=== PATIENT | male | born 1965 | race Caucasian/White ===

== ENCOUNTER → 2016-12-21 | Outpatient (CLI) | payer BC ==
[~2016-12-21] MED LIST: BUPRTAB51 PO; GABA600T PO; MELO7.5T5 PO; OXYC1TAB3 PO; PRLSR20 PO
[2016-12-21 17:56] LABS: BASO % 0.5 %; BASO ABS # 0.03 K/uL (0-0.2); COMPLETE YES; EOS % 0.8 %; HEMATOCRIT 44.3 % (42-52); IG% 0.2 %; LYMPH ABS # 1.84 K/uL (1.2-3.4); MEAN CELL VOLUME 91.7 fL (80-100); MEAN CORPUSCULAR HEMOGLOBIN 31.1 pg (25-34); MEAN CORPUSCULAR HGB CONC 33.9 g/dl (32-36); MEAN PLATELET VOLUME 10.6 fL (7.4-10.4); MONO % 8.7 %; NEUT % 60.8 %; PLATELET COUNT 228 K/uL (130-400); RED BLOOD COUNT 4.83 M/uL (4.7-6.1); WHITE BLOOD COUNT 6.35 K/uL (4.8-10.8)
[2016-12-21 18:10] LABS: BLOOD UREA NITROGEN 11 mg/dl (7-18); BUN/CREATININE RATIO 12.2 (10-20); CALCIUM 9.2 mg/dl (8.5-10.1); CARBON DIOXIDE 27 mmol/L (21-32); CHLORIDE 109 mmol/L (98-107); CREATININE 0.93 mg/dl (0.60-1.40); GLUCOSE 90 mg/dl (70-99); POTASSIUM 3.7 mmol/L (3.5-5.1); SODIUM 141 mmol/L (136-145)
[2016-12-21 18:18] LABS: LYME DISEASE AB IGM NEG (NEG)
[2016-12-21 18:21] LABS: LYME DISEASE AB IGG NEG (NEG)
[2016-12-21 18:23] LABS: ALB/GLOB RATIO 1.3 (0.9-2); ALKALINE PHOSPHATASE 64 U/L (45-117); ALT/SGPT 40 U/L (12-78); AST/SGOT 19 U/L (15-37); THYROID STIMULATING HORMONE 0.972 uIu/ml (0.300-4.500)
== END | disposition home or self-care (01) ==
LOC: C.LABPVFM 13:14
PROVIDERS: ATTEND Psychiatry & Neurology Neurology
DX: R41.3 Other amnesia (principal); F41.8 Other specified anxiety disorders

== ENCOUNTER → 2017-02-12 | Outpatient (CLI) | payer BC ==
[~2017-02-12] MED LIST changes: +GADAVIST IV PRN
--- NOTE | 2017-02-12 19:22 | DIAGNOSTIC IMAGING REPORT ---
MRI LUMBAR SPINE COMBINATION CLINICAL HISTORY: M48.061,M54.17, BILATERAL LEG RADICULOPATHY. BILATERAL LEG WEAKNESS TECHNIQUE: Sagittal and axial T1, T2 and STIR images were obtained. Imaging was obtained before and after the administration of 14.9 cc of intravenous Gadavist COMPARISON STUDY: Intraoperative lumbar spine dated 09/17/2014 OBSERVATIONS: There are no areas of marrow replacement suspicious for neoplasm. There multiple Schmorl's nodes with reactive marrow edema most pronounced at the inferior L2 and superior L4 levels. L1-2: There is a broad-based central disc protrusion. There is mild to moderate spinal stenosis. There is mild bilateral foraminal narrowing. L2-3: There is a circumferential disc bulge. There is facet joint arthropathy. There is moderate spinal stenosis. There is mild bilateral foraminal narrowing. There are postlaminectomy changes the L3 level. L3-4: There is a minor circumferential disc bulge. There is mild spinal stenosis. There is no significant foraminal narrowing. L4-5: There is a mild circumferential disc bulge present. There is a left hemilaminectomy defect. There is no significant spinal stenosis. There is mild left-sided foraminal narrowing L5-S1: There is a circumferential disc bulge. There is facet joint arthropathy. There is no significant spinal stenosis. There are postsurgical changes of a left hemilaminectomy. There is mild bilateral foraminal narrowing. The conus medullaris and cauda equina appear normal. Postcontrast images reveal enhancing laminectomy scar at the L3, L5 and S1 levels. There are no pathologically enhancing cord lesions. IMPRESSION: 1. Postsurgical changes and moderate multilevel spondylitic change. There is multilevel foraminal narrowing. There is mild spinal stenosis at the L3-4 level, mild to moderate spinal stenosis the L1-2 level, and moderate spinal stenosis at the L2-3 level. Electronically signed by: Mor Marin M.D. 02/12/2017 7:20 PM Dictated Date/Time: 02/12/2017 7:06 PM
== END | disposition home or self-care (01) ==
LOC: C.MRI 17:39
PROVIDERS: ATTEND Psychiatry & Neurology Neurology
DX: M48.061 Spinal stenosis, lumbar region without neurogenic claudication (principal); M54.17 Radiculopathy, lumbosacral region; Z98.890 Other specified postprocedural states

== ENCOUNTER 2021-03-24 06:55 | Inpatient (IN) ==
[2021-03-24] MEDS ORDERED: ACETAMINOPHEN 500 MG TAB PO STA (07:43)
[2021-03-24] MEDS ORDERED: SODIUM CHLORIDE 0.9% 1000ML 1,000 ML IV SCH (07:45)
[2021-03-24 07:55] LABS: Basophils # (auto) 0.01 K/uL (0-0.2); Basophils % (auto) 0.3 %; Eosinophils # (auto) 0.01 K/uL (0-0.5); Eosinophils % (auto) 0.3 %; Hematocrit (blood only) 44.3 % (42-52); Hemoglobin 15.8 g/dL (14.0-18.0); Immature Granulocytes # (auto) 0.01 K/uL (0.00-0.02); Immature Granulocytes % (auto) 0.3 %; Lymphocytes # (auto) 0.74 K/uL (1.2-3.4); Lymphocytes % (auto) 21.8 %; Mean Corpuscular Hemoglobin 31.7 pg (25-34); Mean Corpuscular Hgb Conc 35.7 g/dL (32-36); Mean Corpuscular Volume 88.8 fL (80-100); Mean Platelet Volume 10.4 fL (7.4-10.4); Monocytes % (auto) 11.8 %; Neutrophils # (auto) 2.23 K/uL (1.4-6.5); Neutrophils % (auto) 65.5 %; Platelet Count 126 K/uL (130-400); RDW Coefficient of Variation 12.8 % (11.5-14.5); RDW Standard Deviation 41.5 fL (36.4-46.3); Red Blood Count 4.99 M/uL (4.7-6.1)
[2021-03-24 08:04] LABS: D Dimer 480 ug/L FEU (0-500); INR 1.2 (0.9-1.1); Prothrombin Time 12.3 Seconds (9.0-12.0)
--- NOTE | 2021-03-24 08:04 | Emergency Department Note ---
History of Present Illness General Chief complaint: Shortness of Breath/Dyspnea Stated complaint: RESP. DISTRESS Time Seen by Provider: 03/24/21 07:31 History of Present Illness This 55-year-old male patient presents to the emergency department today for evaluation of shortness of breath. The patient presents by ambulance. The patient states his got a COVID-19 vaccine. She then developed flulike symptoms of congestion, cough, runny nose, shortness of breath. She improved, but "she gave it to me". The patient reports cough, congestion, shortness of breath. Symptoms have been ongoing for about a week. They worsened at about 230 this morning. He denies documented fever. He reports some generalized leg swelling which has been ongoing for several months. The patient denies any chest pain or weakness. No history of PE or DVT. The patient denies any medical problems including hypertension, heart disease, GERD, diabetes, notes he does not take any other medications. Patient did not receive a COVID-19 vaccine. Home Medications Medication Instructions Recorded Confirmed Type bupropion HCl 150 mg 24 hr tablet, 300 mg PO QAM tab 10/20/19 03/24/21 History extended release (Wellbutrin XL) gabapentin 600 mg tablet 600 mg PO BID #180 tab 10/20/20 03/24/21 Rx medical marijuana See Rx Instructions PO .COMPLEX PRN 10/20/20 03/24/21 History trazodone 100 mg tablet 150 mg PO HS 11/18/20 03/24/21 History celecoxib 200 mg capsule (Celebrex) 200 mg PO QAM 11/24/20 03/24/21 History omeprazole 20 mg tablet,delayed 20 mg PO QPM 11/24/20 03/24/21 History release Allergies Allergy/AdvReac Type Severity Reaction Status Date / Time codeine AdvReac Intermediate Severe Verified 03/09/21 09:23 abdominal cramps Past Med/Surg History Medical History Anxiety Bilateral inguinal hernia Cancer BCC S/P EXCISION Chronic back pain Diverticular disease GERD (gastroesophageal reflux disease) Morbid obesity Osteoarthritis Surgical History H/O bilateral inguinal hernia repair (12/09/20) Laparoscopic cholecystectomy with cholangiogram Dr. Patel 12-09-2020 H/O foot surgery RIGHT HAMMERTOE REPAIRS H/O hand surgery LEFT TRIGGER FINGER RELEASE History of arthroscopy B/L KNEE History of carpal tunnel release RIGHT History of difficult intubation ACDF C4-C5 at [facility]= 05/09/15= could only see epiglottis with MAC 4, Glidescope 4 attempt unable to lift soft tissue enough to visualize cords. MD murphy attempt x2 successful- all attempts atraumatic History of knee replacement Right TKA (08/09/18): SAB at L3-L4/L4-L5 (x4 attempts) > attempted SAB without success > elective glidescope, atraumatic, ETT 8.0 at [facility] History of laminectomy X2 History of local excision of skin lesion BCC History of neck surgery ACDF C4-C5; ROM WNL History of repair of rotator cuff RIGHT Rectal fistula S/P REPAIR S/P excision of lipoma S/P wrist surgery LEFT (FUSION) Family History Grandfather (Maternal) Family history of diabetes mellitus Prostate cancer Myocardial infarction Family/Other No problems noted. Father Prostate cancer Other Colorectal cancer Denies family history of Ovarian cancer Deep vein thrombosis Breast cancer Pulmonary embolism Social History Smoking Status: Light tobacco smoker Tobacco Type: Cigars Years Smoked: 20; Cigarettes Per Day: 1-2 cigars a day; Second Hand Exposure: No; Hx Alcohol Use: Yes Alcohol type: beer Alcohol Intake Frequency: 2-4 x/Month Hx Substance Use: Yes Last Used Substance: Unknown Substance Use Type Other:: medical marijuana Preferred Language: Wallisian Communication Ability: Effective Molded [employer] Cutter Required: No Beliefs That Will Affect Care: None marital status: Current Living Situation: Spouse Current Living Situation Comment: lives with in [facility] current occupational status: retired 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, [employer] How many Children do You have: 2 Feels Safe at Home: Yes caffeine: Yes Dental Care, Regularly: Yes Physical Activity Frequency: 1-2 Times per Week Seatbelt Use: always Sunscreen Use: Yes Assistive Devices: Contacts and Glasses Review of Systems A total of 10 systems reviewed and were otherwise negative Physical Exam Vital Signs Vital Signs - 24 hr 03/24/21 06:55 03/24/21 07:06 03/24/21 07:44 Temperature 37.7 C H Temperature Source Oral Pulse Rate 112 H Pulse Rate [Apical] Respiratory Rate 20 Blood Pressure 134/73 Blood Pressure [Right Arm] Blood Pressure Mean 93 Blood Pressure Mean [Right Arm] Pulse Oximetry 97 94 Oxygen Delivery Method Nasal Cannula Nasal Cannula Room Air Oxygen Flow Rate 4 4 Sepsis Recent Fever Within 48 Hours Yes Sepsis New/Unexplained Change in Mental Status No Sepsis Action Taken by Nursing No Action Required 03/24/21 08:12 03/24/21 08:55 03/24/21 09:00 Temperature Temperature Source Pulse Rate Pulse Rate [Apical] 103 H 86 Respiratory Rate 18 18 Blood Pressure Blood Pressure [Right Arm] 167/99 H 138/88 Blood Pressure Mean Blood Pressure Mean [Right Arm] 121 104 Pulse Oximetry 93 88 L 96 Oxygen Delivery Method Room Air Room Air Nasal Cannula Oxygen Flow Rate 2 Sepsis Recent Fever Within 48 Hours Sepsis New/Unexplained Change in Mental Status Sepsis Action Taken by Nursing VITALS: Vitals are noted on the nurse's note and reviewed by myself. Vital signs stable. GENERAL: This is a 55-year-old white obese male, in no acute distress, nondiaphoretic, well-developed well-nourished. SKIN: The skin was without rashes, erythema, edema, or bruising. There is no tenting of the skin. Capillary refill less than 2 seconds. HEAD: Normocephalic atraumatic. EYES: Conjunctivae without injection, sclerae without icterus. NECK: Supple without nuchal rigidity. No lymphadenopathy. No thyromegaly. Cervical spine is nontender. No JVD. HEART: Regular rate and rhythm without murmurs gallops or rubs. LUNGS: Clear to auscultation bilaterally without wheezes, rales or rhonchi. No retractions or accessory muscle use. ABDOMEN: Positive bowel sounds x 4. Soft, nontender, without masses or organomegaly. Farris sign negative. No guarding or rebound tenderness. MUSCULOSKELETAL: No muscle atrophy, erythema, or edema noted. Full range of motion without joint tenderness in all extremities. No tenderness to palpation. Normal gait. Strength 5/5 throughout. NEURO: Patient was alert and oriented to person place and time. No focal neurological deficits. Course Course The patient was seen and evaluated as above. An order was placed for continuous cardiac monitoring. The monitor shows a sinus tachycardia at a rate of 112 bpm. IV access obtained, labs drawn. Patient hydrated with IV fluids and medicated with acetaminophen. X-ray imaging performed and reviewed by myself and radiologist as noted. Labs reviewed by myself. I discussed the findings with the patient at bedside. Recommended admission. Patient was agreeable. Patient given IV Decadron while in the emergency department. I discussed the case with the quality improvement manager. I discussed the case with the [facility] hospitalist physician, Dr. Carson. He did agree to see and evaluate the patient. Please see hospitalist dictation regarding ongoing management and care of this patient. Administered Medications Sodium Chloride (Sodium Chloride 0.9% 10ml Flush) 30 ml IV Q24H ESTEBAN Stop: 03/28/21 09:46 Last Admin: 03/24/21 13:20 Dose: Not Given Documented by: [id number] Discontinued Medications Acetaminophen (Acetaminophen 500 Mg Tab) 1,000 mg PO NOW STA Stop: 03/24/21 07:44 Last Admin: 03/24/21 08:14 Dose: 1,000 mg Documented by: [id number] Dexamethasone (Dexamethasone Sod Inj 4 Mg/Ml Vial) Confirm Administered Dose 8 mg .ROUTE .STK-MED ONE Stop: 03/24/21 13:08 Last Admin: 03/24/21 13:20 Dose: 6 mg Documented by: [id number] Dexamethasone Sodium Phosphate (DexamethasonePf 10 Mg/Ml Vial) 6 mg IV NOW ONE Stop: 03/24/21 09:20 Last Admin: 03/24/21 13:20 Dose: Not Given Documented by: [id number] Sodium Chloride (Nss 1000ml) 1,000 mls @ 999 mls/hr IV .Q1H1M ESTEBAN Stop: 03/24/21 08:45 Last Infusion: 03/24/21 09:52 Dose: 0 mls/hr Documented by: [id number] Admin: 03/24/21 08:14 Dose: 999 mls/hr Documented by: [id number] Remdesivir 200 mg/ Sodium (Chloride) 250 mls @ 125 mls/hr IV ONE STA; Protocol Stop: 03/24/21 11:38 Last Infusion: 03/24/21 13:10 Dose: 0 mls/hr Documented by: [id number] Admin: 03/24/21 11:07 Dose: 125 mls/hr Documented by: [id number] Ioversol (Optiray 320 125ml) 120 ml IV ONCE ONE Stop: 03/24/21 10:56 Last Admin: 03/24/21 10:57 Dose: 120 ml Documented by: [id number] Medical Decision Making Differential Diagnosis COVID-19, bronchitis, reactive airway disease, pneumonia, pneumothorax, COPD, CHF, infections, cardiac ischemia, pulmonary embolism, musculoskeletal, gastrointestinal, as well as other pathologies. Medical Records Attestation: I reviewed the patient's medical records. Home Medications Current Medication List: was personally reviewed by me Laboratory Data No leukocytosis, anemia, thrombocytopenia. Renal, hepatic function, and electrolytes without significant abnormality. Troponin negative. Procalcitonin less than 0.05. D-dimer 480. INR 1.2. Influenza, RSV testing negative. COVID-19 testing positive. Result diagrams: 03/24/21 07:40 03/24/21 07:40 Lab Results 03/24/21 03/24/21 03/24/21 Range/Units 07:40 07:40 07:40 WBC 3.40 L (4.8-10.8) K/uL RBC 4.99 (4.7-6.1) M/uL Hgb 15.8 (14.0-18.0) g/dL Hct 44.3 (42-52) % MCV 88.8 (80-100) fL MCH 31.7 (25-34) pg MCHC 35.7 (32-36) g/dL RDW Std Deviation 41.5 (36.4-46.3) fL RDW Coeff of Osvaldo 12.8 (11.5-14.5) % Plt Count 126 L (130-400) K/uL MPV 10.4 (7.4-10.4) fL Immature Gran % (Auto) 0.3 % Neut % (Auto) 65.5 % Lymph % (Auto) 21.8 % [place] % (Auto) 11.8 % Eos % (Auto) 0.3 % Baso % (Auto) 0.3 % Neut # (Auto) 2.23 (1.4-6.5) K/uL Lymph # (Auto) 0.74 L (1.2-3.4) K/uL [place] # (Auto) 0.40 (0.11-0.59) K/uL Eos # (Auto) 0.01 (0-0.5) K/uL Baso # (Auto) 0.01 (0-0.2) K/uL Immature Gran # (Auto) 0.01 (0.00-0.02) K/uL PT (9.0-12.0) Seconds INR (0.9-1.1) D-Dimer (0-500) ug/L FEU Sodium 135 L (136-145) mmol/L Potassium 3.9 (3.5-5.1) mmol/L Chloride 102 (98-107) mmol/L Carbon Dioxide 18 L (21-32) mmol/L Anion Gap 15.0 H (3-11) BUN 9 (7-18) mg/dl Creatinine 0.77 (0.6-1.4) mg/dl Est Cr Clr Drug Dosing 163.4 ml/min Est GFR ( Amer) 116.8 ml/min Est GFR (Non-Af Amer) 100.7 ml/min BUN/Creatinine Ratio 12.2 (10-20) Glucose 91 (70-99) mg/dl Calcium 8.9 (8.5-10.1) mg/dl Magnesium 1.9 (1.8-2.4) mg/dl Total Bilirubin 0.9 (0.2-1) mg/dl AST 24 (15-37) U/L ALT 37 (12-78) U/L Alkaline Phosphatase 71 (45-117) U/L Troponin I < 0.015 (0-0.045) ng/ml Total Protein 7.4 (6.4-8.2) gm/dl Albumin 3.9 (3.4-5.0) gm/dl Globulin 3.5 (2.5-4.0) gm/dl Albumin/Globulin Ratio 1.1 (0.9-2) Procalcitonin < 0.05 (0-0.5) ng/ml SARS-CoV-2 (PCR) (Negative) Influenza Type A (PCR) (Neg) Influenza Type B (PCR) (Neg) RSV (RT-PCR) (Neg) 03/24/21 03/24/21 Range/Units 07:40 07:40 WBC (4.8-10.8) K/uL RBC (4.7-6.1) M/uL Hgb (14.0-18.0) g/dL Hct (42-52) % MCV (80-100) fL MCH (25-34) pg MCHC (32-36) g/dL RDW Std Deviation (36.4-46.3) fL RDW Coeff of Osvaldo (11.5-14.5) % Plt Count (130-400) K/uL MPV (7.4-10.4) fL Immature Gran % (Auto) % Neut % (Auto) % Lymph % (Auto) % [place] % (Auto) % Eos % (Auto) % Baso % (Auto) % Neut # (Auto) (1.4-6.5) K/uL Lymph # (Auto) (1.2-3.4) K/uL [place] # (Auto) (0.11-0.59) K/uL Eos # (Auto) (0-0.5) K/uL Baso # (Auto) (0-0.2) K/uL Immature Gran # (Auto) (0.00-0.02) K/uL PT 12.3 H (9.0-12.0) Seconds INR 1.2 H (0.9-1.1) D-Dimer 480 (0-500) ug/L FEU Sodium (136-145) mmol/L Potassium (3.5-5.1) mmol/L Chloride (98-107) mmol/L Carbon Dioxide (21-32) mmol/L Anion Gap (3-11) BUN (7-18) mg/dl Creatinine (0.6-1.4) mg/dl Est Cr Clr Drug Dosing ml/min Est GFR ( Amer) ml/min Est GFR (Non-Af Amer) ml/min BUN/Creatinine Ratio (10-20) Glucose (70-99) mg/dl Calcium (8.5-10.1) mg/dl Magnesium (1.8-2.4) mg/dl Total Bilirubin (0.2-1) mg/dl AST (15-37) U/L ALT (12-78) U/L Alkaline Phosphatase (45-117) U/L Troponin I (0-0.045) ng/ml Total Protein (6.4-8.2) gm/dl Albumin (3.4-5.0) gm/dl Globulin (2.5-4.0) gm/dl Albumin/Globulin Ratio (0.9-2) Procalcitonin (0-0.5) ng/ml SARS-CoV-2 (PCR) POSITIVE A* (Negative) Influenza Type A (PCR) Negative (Neg) Influenza Type B (PCR) Negative (Neg) RSV (RT-PCR) Negative (Neg) Imaging Data Radiologist's Impression: Chest X-Ray 03/24/21 07:32 XR chest 1V portable CLINICAL HISTORY: Dyspnea. Loss of taste and smell COMPARISON STUDY: 07/25/2018 TECHNIQUE: 1 view of the chest FINDINGS: Single frontal view of the chest demonstrates the cardiomediastinal silhouette to be within normal limits. The lungs are clear of alveolar opacities. There is no evidence for pleural effusion. There is no evidence for vascular congestion. There is no acute osseous pathology. IMPRESSION: No acute cardiopulmonary disease. ACT 112: Negative or not required by law. Electronically signed by: Chay Wilson M.D. 03/24/2021 8:21 AM ECG Data Attestation: I personally reviewed and interpreted this ECG as follows: Indication: + SOB/dyspnea Rate (beats per minute): 104 Rhythm: + sinus tachycardia ECG Roe: + Normal ECG ST segments: + T-wave inversions (Inferior); no ST depression or no ST elev ation Comparison ECG Date: from (11/26/2020) Change: the following changes noted (T-wave inversion now presents, ventricular rate has increased by 40bpm) Blood Pressure Blood Pressure Findings: Normal blood pressure MDM Narrative This 55-year-old male patient presents to the emergency department today for evaluation of shortness of breath. The patient was found to be hypoxic with an O2 saturation of 88% on room air here in the ED. He did experience improvement in his symptoms with oxygen therapy. The patient was found to have COVID-19. He is not vaccinated. No significant pneumonia noted on chest x-ray. Given the patient's oxygen requirement, hypoxia, and current illness, I do recommend inpatient therapy. The patient was started on Decadron while here in the emergency department. Please see hospitalist dictation regarding ongoing management and care of this patient. The chart was completed utilizing [employer] voice recognition software. Gr ammatical errors, random word insertions, pronoun errors, and incomplete sentences are an occasional consequence of this system due to software limitations, ambient noise, and hardware issues. Any formal questions or concerns about the content, text, or information contained within the body of this dictation should be directly addressed to the provider for clarification. Impression & Plan Pneumonia due to COVID-19 virus, Acute respiratory failure with hypoxia, Leukopenia Discharge Plan Visit Data Chief Complaint: Shortness of Breath/Dyspnea Stated Complaint: RESP. DISTRESS ED Provider: Paul Cotto ED Midlevel Provider: Chelle Win Discharge Problem: Pneumonia due to COVID-19 virus, Acute respiratory failure with hypoxia, Leukopenia Patient Disposition: Admitted As Inpatient
[2021-03-24 08:14] LABS: Alanine Aminotransferase 37 U/L (12-78); Albumin Level 3.9 gm/dl (3.4-5.0); Aspartate Aminotransferase 24 U/L (15-37); BUN Creatinine Ratio 12.2 (10-20); Blood Urea Nitrogen 9 mg/dl (7-18); Calcium 8.9 mg/dl (8.5-10.1); Carbon Dioxide 18 mmol/L (21-32); Chloride 102 mmol/L (98-107); Creatinine Clr Calc Pharmacy 163.4 ml/min; Est GFR (African American) 116.8 ml/min; Est GFR (Non-African American) 100.7 ml/min; Glucose 91 mg/dl (70-99); Magnesium 1.9 mg/dl (1.8-2.4); Potassium 3.9 mmol/L (3.5-5.1); Sodium 135 mmol/L (136-145)
[2021-03-24 08:18] LABS: Albumin Globulin Ratio 1.1 (0.9-2); Alkaline Phosphatase 71 U/L (45-117); Bilirubin,Total 0.9 mg/dl (0.2-1); Globulin 3.5 gm/dl (2.5-4.0); Total Protein 7.4 gm/dl (6.4-8.2); Troponin I < 0.015 ng/ml (0-0.045)
--- NOTE | 2021-03-24 08:22 | XRay Report ---
XR chest 1V portable CLINICAL HISTORY: Dyspnea. Loss of taste and smell COMPARISON STUDY: 07/25/2018 TECHNIQUE: 1 view of the chest FINDINGS: Single frontal view of the chest demonstrates the cardiomediastinal silhouette to be within normal li mits. The lungs are clear of alveolar opacities. There is no evidence for pleural effusion. There is no evidence for vascular congestion. There is no acute osseous pathology. IMPRESSION: No acute cardiopulmonary disease. ACT 112: Negative or not required by law. Electronically signed by: Chay Wilson M.D. 03/24/2021 8:21 AM
[2021-03-24 08:40] LABS: Influenza A virus by PCR Negative (Neg); Influenza B virus by PCR Negative (Neg); RSV by PCR Negative (Neg)
[2021-03-24 09:01] LABS: SARS CoV2 RNA(COVID-19) InHosp POSITIVE (Negative)
[2021-03-24] MEDS ORDERED: dexAMETHasone**PF** 10 MG/ML VIAL IV ONE (09:19)
[2021-03-24] MEDS ORDERED: REMDESIVIR 200 MG in SODIUM CHLORIDE 0.9% 210 ML IV STA (09:39)
--- NOTE | 2021-03-24 09:40 | History & Physical Report ---
Date of Service March 24, 2021 Assessment & Plan (1) Acute respiratory failure with hypoxia: Plan: 2nd to COVID-19 pneumonia. Given the sudden nature of his dyspnea this am, along with travel by plane to/from [place], PE should be ruled out. Thus, obtain CTA chest - r/o PE. If negative for PE the dyspnea was likely then from worsening pneumonia. (2) Pneumonia due to COVID-19 virus: Plan: Dexamethasone 6mg IV daily for up to 10 days. Remdesivir for up to 5 days, first dose now. Incentive spirometry, flutter valve, mucinex, ventolin prn, and self-proning. Discussed proning in detail. Oxygen to maintain o2 sats >92%. (3) Leukopenia: Plan: 2nd COVID-19 infection. CBC in am. (4) Morbid obesity: Plan: BMI 42 (5) GERD (gastroesophageal reflux disease): Plan: Continue PPI. 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 No h/o asthma or COPD. (7) Thrombocytopenia: Plan: Mild. 2nd to COVID-19 infection. Repeat CBC in am. (8) DVT prophylaxis: Plan: lovenox 40mg BID Plan: will update pt's History of Present Illness Chief Complaint: shortness of breath Primary Care Provider: Domo Cochran, 55yo male with GERD and morbid obesity presents with ~7 days of fatigue, anorexia, loss of taste/smell, dry cough, diarrhea (several days ago), chest tightness, and fever. Patient states that he is unvaccinated against COVID-19. He and his traveled to [place] by plane early last week for [employer] to visit their son in [place]. About 1-2 days after arriving he developed the fatigue, then the day after [place] he lost his taste and smell. Upon arrival back to [facility] early this week he has continued to feel poorly. Overnight the patient developed fever to 102 degrees, and then about 0230am today he was awoken by the acute onset of dyspnea. He had not experienced this during the previous week. The dyspnea this am did not resolve and ultimately he called 911. EMS was summoned to his house and he was transported to [facility]. In the ER O2 sats were 88% in room air. He was given dexamethasone 6mg IV x 1. He reports feeling better with the oxygen. Allergies Allergy/AdvReac Type Severity Reaction Status Date / Time codeine AdvReac Intermediate Severe Verified 03/09/21 09:23 abdominal cramps Home Medications Medication Instructions Recorded Confirmed Type bupropion HCl 150 mg 24 hr tablet, 300 mg PO QAM tab 10/20/19 03/24/21 History extended release (Wellbutrin XL) gabapentin 600 mg tablet 600 mg PO BID #180 tab 10/20/20 03/24/21 Rx medical marijuana See Rx Instructions PO .COMPLEX PRN 10/20/20 03/24/21 History trazodone 100 mg tablet 150 mg PO HS 11/18/20 03/24/21 History celecoxib 200 mg capsule (Celebrex) 200 mg PO QAM 11/24/20 03/24/21 History omeprazole 20 mg tablet,delayed 20 mg PO QPM 11/24/20 03/24/21 History release Past Med/Surg History Medical History Anxiety Bilateral inguinal hernia Cancer BCC S/P EXCISION Chronic back pain Diverticular disease GERD (gastroesophageal reflux disease) Morbid obesity Osteoarthritis Surgical History H/O bilateral inguinal hernia repair (12/09/20) Laparoscopic cholecystectomy with cholangiogram Dr. Patel 12-09-2020 H/O foot surgery RIGHT HAMMERTOE REPAIRS H/O hand surgery LEFT TRIGGER FINGER RELEASE History of arthroscopy B/L KNEE History of carpal tunnel release RIGHT History of difficult intubation ACDF C4-C5 at [facility]= 05/09/15= could only see epiglottis with MAC 4, Glidescope 4 attempt unable to lift soft tissue enough to visualize cords. MD murphy attempt x2 successful- all attempts atraumatic History of knee replacement Right TKA (08/09/18): SAB at L3-L4/L4-L5 (x4 attempts) > attempted SAB without success > elective glidescope, atraumatic, ETT 8.0 at [facility] History of laminectomy X2 History of local excision of skin lesion BCC History of neck surgery ACDF C4-C5; ROM WNL History of repair of rotator cuff RIGHT Rectal fistula S/P REPAIR S/P excision of lipoma S/P wrist surgery LEFT (FUSION) Family History Grandfather (Maternal) Family history of diabetes mellitus Prostate cancer Myocardial infarction Family/Other No problems noted. Father Prostate cancer Other Colorectal cancer Denies family history of Ovarian cancer Deep vein thrombosis Breast cancer Pulmonary embolism Social History Smoking Status: Current every day smoker Tobacco Type: Cigars Years Smoked: 20; Cigarettes Per Day: 1-2 cigars a day; Second Hand Exposure: No; Do You Dip or Chew Tobacco: No; Hx Alcohol Use: Yes Alcohol type: beer Alcohol Intake Frequency: 2-4 x/Month Hx Substance Use: No Preferred Language: Liberian Communication Ability: Effective Scaleman Required: No Beliefs That Will Affect Care: None marital status: Current Living Situation: Spouse Current Living Situation Comment: lives with in [facility] current occupational status: retired 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, [employer] How many Children do You have: 2 Other Information That Helps Us Care for You: No Feels Safe at Home: Yes Safety Concerns: Feels Safe At This Time caffeine: Yes Dental Care, Regularly: Yes Physical Activity Frequency: 1-2 Times per Week Seatbelt Use: always Sunscreen Use: Yes Assistive Devices: Glasses Review of Systems Review of Systems: gen: +fevers (today only),chills (today only), anorexia, fatigue Eyes: no change in vision HENT: no ear pain or sore throat; +loss of taste & smell neck: no pain CV: chest tightness but no chest pain or pleuritic pain Pulm: +cough, congestion, tightness, and then PND/dyspnea this am; mild SAHNI at this time as well; no snoring per GI: diarrhea 2-3 days ago - now resolved; no nausea or emesis : no dysuria Musculo: denies myalgias neuro: no headache skin: rash on abdominal wall - itchy - improving endo: denies diabetes Physical Exam Physical Exam: Gen: morbidly obese; sick but nontoxic, no distress Eyes: PERRL HENT: nose clear; MMM, no lesions Neck: supple, no lymph nodes, no JVD Heart: RRR, s1 s2, no murmur Lungs: b/l basilar rales, no wheeze, no increased work of breathing Abd: soft, NT, ND, BS+, no HSM Skin: chronic stasis changes b/l legs Ext: trace edema, pulses 2+ b/l musculo: scar over right knee, no joint effusions Psych: a/o x 3 Neuro: strength 5/5 x 4 exts Results & Data Results & Data ([facility]) Vital Signs (Past 12 Hours) Vital Signs Temp Pulse Pulse Resp BP BP Pulse Ox 03/24/21 09:00 86 18 138/88 96 03/24/21 08:55 88 L 03/24/21 08:12 103 H 18 167/99 H 93 03/24/21 07:44 94 03/24/21 07:06 37.7 C H 112 H 20 134/73 97 Laboratory Results Laboratory Results - last 24 hr 03/24/21 03/24/21 03/24/21 07:40 07:40 07:40 WBC 3.40 L RBC 4.99 Hgb 15.8 Hct 44.3 MCV 88.8 MCH 31.7 MCHC 35.7 RDW Std Deviation 41.5 RDW Coeff of Osvaldo 12.8 Plt Count 126 L MPV 10.4 Immature Gran % (Auto) 0.3 Neut % (Auto) 65.5 Lymph % (Auto) 21.8 Hood % (Auto) 11.8 Eos % (Auto) 0.3 Baso % (Auto) 0.3 Neut # (Auto) 2.23 Lymph # (Auto) 0.74 L Hood # (Auto) 0.40 Eos # (Auto) 0.01 Baso # (Auto) 0.01 Immature Gran # (Auto) 0.01 PT INR D-Dimer Sodium 135 L Potassium 3.9 Chloride 102 Carbon Dioxide 18 L Anion Gap 15.0 H BUN 9 Creatinine 0.77 Est Cr Clr Drug Dosing 163.4 Est GFR ( Amer) 116.8 Est GFR (Non-Af Amer) 100.7 BUN/Creatinine Ratio 12.2 Glucose 91 Calcium 8.9 Magnesium 1.9 Total Bilirubin 0.9 AST 24 ALT 37 Alkaline Phosphatase 71 Troponin I < 0.015 Total Protein 7.4 Albumin 3.9 Globulin 3.5 Albumin/Globulin Ratio 1.1 Procalcitonin < 0.05 SARS-CoV-2 (PCR) Influenza Type A (PCR) Influenza Type B (PCR) RSV (RT-PCR) 03/24/21 03/24/21 07:40 07:40 WBC RBC Hgb Hct MCV MCH MCHC RDW Std Deviation RDW Coeff of Osvaldo Plt Count MPV Immature Gran % (Auto) Neut % (Auto) Lymph % (Auto) Hood % (Auto) Eos % (Auto) Baso % (Auto) Neut # (Auto) Lymph # (Auto) Hood # (Auto) Eos # (Auto) Baso # (Auto) Immature Gran # (Auto) PT 12.3 H INR 1.2 H D-Dimer 480 Sodium Potassium Chloride Carbon Dioxide Anion Gap BUN Creatinine Est Cr Clr Drug Dosing Est GFR ( Amer) Est GFR (Non-Af Amer) BUN/Creatinine Ratio Glucose Calcium Magnesium Total Bilirubin AST ALT Alkaline Phosphatase Troponin I Total Protein Albumin Globulin Albumin/Globulin Ratio Procalcitonin SARS-CoV-2 (PCR) POSITIVE A* Influenza Type A (PCR) Negative Influenza Type B (PCR) Negative RSV (RT-PCR) Negative Diagnostic Findings CXR - official radiology reading - no infiltrates EKG - my reading - NSR, RSR' pattern inferior leads; ST depression III, AVF Code Status & VTE Plan Code Status full PG Care Time/CCT Total # of Minutes Spent Total Time Spent with Patient: Total time spent is greater than 50% in coordination of care (as documented) at patient's floor/unit and/or counseling patient: Coding Level of Care Code 44843 Initial Inpt Care Lvl 2 Diagnoses Acute respiratory failure with hypoxia J96.01 Pneumonia due to COVID-19 virus U07.1; J12.82 Leukopenia D72.819 Morbid obesity E66.01 GERD (gastroesophageal reflux disease) K21.9 Tobacco abuse disorder Z72.0 DVT prophylaxis Z29.9 Thrombocytopenia D69.6
[2021-03-24] MEDS ORDERED: OPTIRAY 320 125ml IV ONE (10:55)
--- NOTE | 2021-03-24 11:06 | CT Scan Report ---
CT angio chest PE protocol CLINICAL HISTORY: COVID pneumonia, recent travel; shortness of breath for one week with loss of taste and smell over the last 5 days. Evaluate for pulmonary embolus COMPARISON STUDY: Portable chest on 03/24/2021 CT DOSE: 927.35 mGy.cm TECHNIQUE: CT Angio of the chest was performed.followed by image post processing with coronal, and s agittal MIP reformats. Contrast Volume: Optiray 320, 120 ml FINDINGS: Vasculature: There is homogeneous perfusion of the pulmonary vasculature bilaterally. No intraluminal filling defects or evidence for pulmonary embolus is seen. Airway: The airway is clear. No endobronchial lesion is identified. Lungs: Minimal patchy groundglass opacities are present involving both lungs, left greater than right characteristic of a viral type pneumonitis and early Covid 19 pneumonia. The lungs are otherwise dash ar of confluent alveolar opacities, air bronchograms or pulmonary nodules. The lungs are clear of acu te alveolar opacities, air bronchograms or pulmonary nodules. Pleura: There is no evidence for pleural effusion. There is no evidence for pneumothorax. Mediastinum: There is no evidence for pathologic adenopathy. The heart size is within normal limits. The thoracic aorta is within normal limits. There is no evidence for pericardial effusion. Upper abdomen:The adrenal glands are normal bilaterally. There is evidence for fatty infiltration of the liver. Osseous structures: There is no acute osseous pathology. Mild degenerative changes are present. Impression: 1. No CTA evidence for pulmonary embolus. 2. Minimal patchy groundglass opacities are present involving both lungs, left greater than right lee racteristic of a viral type pneumonitis and early Covid 19 pneumonia. 3. Fatty infiltration of the liver. ACT 112: Negative or not required by law. Electronically signed by: Chay Wilson M.D. 03/24/2021 11:04 AM
[2021-03-24] MEDS ORDERED: DEXAMETHASONE SOD INJ 4 MG/ML VIAL ONE (13:07)
[2021-03-24] MEDS: SODIUM CHLORIDE 0.9% 10ML FLUSH IV SCH (13:20)
--- NOTE | 2021-03-24 14:26 | Electrocardiogram Report ---
Test Reason : Blood Pressure : / mmHG Vent. Rate : 104 BPM Atrial Rate : 104 BPM P-R Int : 158 ms QRS Dur : 094 ms QT Int : 348 ms P-R-T Axes : 014 -01 -09 degrees QTc Int : 457 ms Sinus tachycardia Nonspecific ST abnormality Abnormal ECG When compared with ECG of 26-NOV-2020 13:04, Vent. rate has increased BY 40 BPM Questionable change in QRS axis T wave inversion now evident in Inferior leads Nonspecific T wave abnormality now evident in Anterior leads Confirmed by Marcin Davis ([id number]) on 03/24/2021 2:26:43 PM Referred By: Confirmed By:Justin Davis
[2021-03-24] MEDS ORDERED: ALBUTEROL HFA 8 GM INHALER INH PRN (20:41)
[2021-03-24] MEDS ORDERED: ONDANSETRON INJ 2 MG/ML 2 ML VIAL IV PRN (20:41)
[2021-03-24] MEDS ORDERED: ACETAMINOPHEN 325 MG TAB PO PRN (20:41)
[2021-03-24] MEDS ORDERED: NSS + 20MEQ KCL 20 MEQ/1,000 ML BAG IV SCH (20:41)
[2021-03-24] MEDS: ENOXAPARIN INJ 40 MG/0.4 ML SYR SQ SCH (22:23)
[2021-03-24] MEDS: traZODone HCL 50 MG TAB PO SCH (22:23)
[2021-03-24] MEDS: GABAPENTIN 600 MG TAB PO SCH (22:24)
[2021-03-24] MEDS: guaiFENesin 600 MG TABCR PO SCH (22:24)
[2021-03-25] MEDS: GABAPENTIN 600 MG TAB PO SCH ×2 (09:11→20:54)
[2021-03-25] MEDS: guaiFENesin 600 MG TABCR PO SCH ×2 (09:11→20:54)
[2021-03-25] MEDS: PANTOprazole 40 MG TAB PO SCH (09:12)
[2021-03-25] MEDS: buPROPion XL 300 MG TABCR PO SCH (09:12)
[2021-03-25] MEDS: ENOXAPARIN INJ 40 MG/0.4 ML SYR SQ SCH ×2 (09:17→20:54)
[2021-03-25] MEDS: dexAMETHasone 6 MG in SYRINGE 0 ML IV SCH (09:17)
[2021-03-25] MEDS: SODIUM CHLORIDE 0.9% 10ML FLUSH IV SCH ×2 (09:18→13:14)
[2021-03-25 09:45] LABS: Hemoglobin 14.6 g/dL (14.0-18.0); Mean Corpuscular Hemoglobin 31.2 pg (25-34); Mean Corpuscular Hgb Conc 34.8 g/dL (32-36); Mean Corpuscular Volume 89.7 fL (80-100); Mean Platelet Volume 10.5 fL (7.4-10.4); Platelet Count 132 K/uL (130-400); RDW Coefficient of Variation 12.6 % (11.5-14.5); Red Blood Count 4.68 M/uL (4.7-6.1); White Blood Count 3.74 K/uL (4.8-10.8)
[2021-03-25 10:26] LABS: BUN Creatinine Ratio 13.8 (10-20); C Reactive Protein 3.24 mg/dl (0-0.29); Calcium 8.8 mg/dl (8.5-10.1); Creatinine Clr Calc Pharmacy 165.5 ml/min; Est GFR (African American) 117.4 ml/min; Est GFR (Non-African American) 101.3 ml/min; Potassium 3.6 mmol/L (3.5-5.1)
--- NOTE | 2021-03-25 10:34 | Electrocardiogram Report ---
Test Reason : Blood Pressure : / mmHG Vent. Rate : 086 BPM Atrial Rate : 086 BPM P-R Int : 148 ms QRS Dur : 098 ms QT Int : 378 ms P-R-T Axes : 075 023 007 degrees QTc Int : 452 ms Poor data quality, interpretation may be adversely affected Sinus rhythm with occasional Premature ventricular complexes Otherwise normal ECG When compared with ECG of 24-MAR-2021 07:32, Premature ventricular complexes are now Present Confirmed by Marcin Davis ([id number]) on 03/25/2021 10:34:29 AM Referred By: REFERRED SELF Confirmed By:Justin Davis
[2021-03-25] MEDS: REMDESIVIR 100 MG in SODIUM CHLORIDE 0.9% 230 ML IV SCH (11:59)
--- NOTE | 2021-03-25 18:09 | Hospitalist Progress Note ---
Date of Service March 25, 2021 Assessment & Plan (1) Acute respiratory failure with hypoxia: Plan: 2nd to COVID-19 pneumonia. resolved. o2 weaned off. CTA chest yesterday with NO PE; mild COVID pneumonia seen. no evidence of complicating CHF or bacterial superinfection. (2) Pneumonia due to COVID-19 virus: Plan: Dexamethasone 6mg IV daily for up to 10 days. Day #2 today. Remdesivir for up to 5 days - day #2 today. Cont such due to low 02 sats yesterday and ongoing low-normal sats today (and risk of progression of disease). Incentive spirometry, flutter valve, mucinex, ventolin prn, and self-proning. O2 sats in RA during my visit were 91-93%. I asked nursing to walk him today and check ambulating o2 sats. He is eating poorly, slightly confused, and has not been out of bed much - no discharge today. (3) Leukopenia: Plan: 2nd COVID-19 infection. stable. (4) Morbid obesity: Plan: BMI 42 (5) GERD (gastroesophageal reflux disease): Plan: Continue PPI. c/o mild crampy abd pain/stomach upset today -- check lipase am. 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 No h/o asthma or COPD. (7) Thrombocytopenia: Plan: Mild. 2nd to COVID-19 infection. stable level. (8) DVT prophylaxis: Plan: lovenox 40mg BID (9) Acute metabolic encephalopathy: Plan: 2nd to COVID-19 infection supportive care Plan: updated pt's by phone yesterday and today she was informed we were not discharging today questions answered Admission and Anticipated Discharge Date Admission Date: March 24, 2021 Subjective patient still being housed in ER due to lack of neg pressure room upstairs he had fever this am and felt poorly from this drinking fluids but not eating still no taste or smell very little ambulating mild stomach upset coughing but improved no dyspnea at rest; minimal w/ ambulating during the visit he was slightly confused; took him a really long time to say the months of the year backwards o2 was weaned off overnight Review of Systems Review of Systems: gen - fevers, fatigue, anorexia CV - no pleuritic pain pulm - no sputum production GI - no N/V; mild stomach upset/cramps Physical Exam Physical Exam: Gen: morbidly obese; sickly; no acute distress; slight confusion HENT: nose clear; MMM, no lesions Heart: RRR, s1 s2, no murmur Lungs: b/l basilar rales - mild, improved today; no wheeze, no increased work of breathing Abd: soft, NT, ND, BS+, no HSM Skin: chronic stasis changes b/l legs; faint erythematous rash on abdominal wall Ext: trace edema, pulses 2+ b/l Psych: a/o x 3 but slightly confused and "fuzzy" for details Results & Data Results & Data ([facility]) Vital Signs (Past 12 Hours) Vital Signs Temp Pulse Resp BP Pulse Ox Pulse Ox 03/25/21 15:01 37.1 C 61 22 141/85 H 92 03/25/21 14:08 93 03/25/21 12:12 37.1 C 79 25 H 141/77 H 94 03/25/21 08:37 37.3 C 03/25/21 07:50 39.4 C H 101 H 15 145/79 H 92 Laboratory Results Laboratory Results - last 24 hr 03/25/21 03/25/21 09:18 09:18 WBC 3.74 L RBC 4.68 L Hgb 14.6 Hct 42.0 MCV 89.7 MCH 31.2 MCHC 34.8 RDW Std Deviation 41.0 RDW Coeff of Osvaldo 12.6 Plt Count 132 MPV 10.5 H Sodium 134 L Potassium 3.6 Chloride 103 Carbon Dioxide 23 Anion Gap 8.0 BUN 11 Creatinine 0.76 Est Cr Clr Drug Dosing 165.5 Est GFR ( Amer) 117.4 Est GFR (Non-Af Amer) 101.3 BUN/Creatinine Ratio 13.8 Glucose 96 Calcium 8.8 C-Reactive Protein 3.24 H PG Care Time/CCT Total # of Minutes Spent Total Time Spent with Patient: Total time spent is greater than 50% in coordination of care (as documented) at patient's floor/unit and/or counseling patient: Coding Level of Care Code 29405 Subseq Hosp Care Lvl 2 Diagnoses Acute respiratory failure with hypoxia J96.01 Pneumonia due to COVID-19 virus U07.1; J12.82 Leukopenia D72.819 Morbid obesity E66.01 GERD (gastroesophageal reflux disease) K21.9 Tobacco abuse disorder Z72.0 Thrombocytopenia D69.6 DVT prophylaxis Z29.9 Acute metabolic encephalopathy G93.41
[2021-03-25] MEDS: traZODone HCL 50 MG TAB PO SCH (20:54)
[2021-03-26] MEDS: guaiFENesin 600 MG TABCR PO SCH (07:44)
[2021-03-26] MEDS: buPROPion XL 300 MG TABCR PO SCH (07:44)
[2021-03-26] MEDS: ENOXAPARIN INJ 40 MG/0.4 ML SYR SQ SCH (07:44)
[2021-03-26] MEDS: GABAPENTIN 600 MG TAB PO SCH (07:44)
[2021-03-26] MEDS: dexAMETHasone 6 MG in SYRINGE 0 ML IV SCH (07:45)
[2021-03-26] MEDS: PANTOprazole 40 MG TAB PO SCH (07:45)
[2021-03-26 10:12] LABS: Hemoglobin 15.5 g/dL (14.0-18.0); Mean Corpuscular Hemoglobin 31.3 pg (25-34); Mean Corpuscular Hgb Conc 34.4 g/dL (32-36); Mean Corpuscular Volume 90.7 fL (80-100); Mean Platelet Volume 10.3 fL (7.4-10.4); Platelet Count 139 K/uL (130-400); RDW Coefficient of Variation 12.8 % (11.5-14.5); RDW Standard Deviation 42.5 fL (36.4-46.3); Red Blood Count 4.96 M/uL (4.7-6.1); White Blood Count 4.42 K/uL (4.8-10.8)
[2021-03-26 10:39] LABS: BUN Creatinine Ratio 14.7 (10-20); Calcium 9.1 mg/dl (8.5-10.1); Creatinine Clr Calc Pharmacy 143.1 ml/min; Est GFR (African American) 112.1 ml/min; Est GFR (Non-African American) 96.7 ml/min; Potassium 3.7 mmol/L (3.5-5.1)
[2021-03-26] MEDS: SODIUM CHLORIDE 0.9% 10ML FLUSH IV SCH ×2 (10:48→13:29)
[2021-03-26] MEDS: REMDESIVIR 100 MG in SODIUM CHLORIDE 0.9% 230 ML IV SCH (12:15)
--- NOTE | 2021-03-26 12:39 | Discharge Summary ---
Date of Service March 26, 2021 Admission HPI Per Admitting Provider 55yo male with GERD and morbid obesity presents with ~7 days of fatigue, anorexia, loss of taste/smell, dry cough, diarrhea (several days ago), chest tightness, and fever. Patient states that he is unvaccinated against COVID-19. He and his traveled to [place] by plane early last week for [place] to visit their son in [place]. About 1-2 days after arriving he developed the fatigue, then the day after Thanks he lost his taste and smell. Upon arrival back to [facility] early this week he has continued to feel poorly. Overnight the patient developed fever to 102 degrees, and then about 0230am today he was awoken by the acute onset of dyspnea. He had not experienced this during the previous week. The dyspnea this am did not resolve and ultimately he called 911. EMS was summoned to his house and he was transported to [facility]. In the ER O2 sats were 88% in room air. He was given dexamethasone 6mg IV x 1. He reports feeling better with the oxygen. Admission Exam Per Admitting Provider Gen: morbidly obese; sick but nontoxic, no distress Eyes: PERRL HENT: nose clear; MMM, no lesions Neck: supple, no lymph nodes, no JVD Heart: RRR, s1 s2, no murmur Lungs: b/l basilar rales, no wheeze, no increased work of breathing Abd: soft, NT, ND, BS+, no HSM Skin: chronic stasis changes b/l legs Ext: trace edema, pulses 2+ b/l musculo: scar over right knee, no joint effusions Psych: a/o x 3 Neuro: strength 5/5 x 4 exts Principal Diagnosis COVID-19 pneumonia Discharge Exam General: A&Ox3. NAD. Cooperative. HEENT: Atraumatic, normocephalic. Pulm: Trace bibasilar crackles, moderate air movement,-wheezes, -rales, - rhonchi. Symmetrical chest rise. No increase work of breathing. No respiratory distress. Cardiac: RRR, -mrg. Radial pulses intact and symmetrical. Abdominal: Nontender, nondistended, soft. BS present. Extremities: Warm, dry. Moving all extremities equally. Discharge Data Allergies Allergy/AdvReac Type Severity Reaction Status Date / Time codeine AdvReac Intermediate Severe Verified 03/09/21 09:23 abdominal cramps Consultations 03/24/21 09:28 ED Decision to Admit Stat Ordered Studies 03/24/21 10:31 CT angio chest PE protocol Stat Hospital Course (1) Acute respiratory failure with hypoxia: Moshe Mandel) was admitted for acute hypoxic respiratory failure 2/[address] chest did not show any evidence of PE, mild Covid pneumonia was seen. He had an oxygen requirement on nasal cannula, which was quickly weaned and patient was tolerating room air at rest and with ambulation maintaining sats greater than 94% following wean. To do as outpatient: 1. Complete 8 additional days of dexamethasone 6 mg p.o. 2. Routine follow-up with PCP 3. Consider repeat CBC to ensure normalization of leukopenia, thrombocytopenia during admission improved Acute hypoxic respiratory failure 2nd to COVID-19 pneumonia. resolved. o2 weaned off. CTA chest with NO PE; mild COVID pneumonia seen. no evidence of complicating CHF or bacterial superinfection Patient satting on room air at rest and with ambulation greater than 94% for more than 24 hours prior to time of discharge Day of discharge discussed various options including continuing to observe, completion of remdesivir protocol, return home with return precautions. Patient strongly preferred return precautions and to be discharged 03/26, felt comfortable with this especially given satting normally on room air. (2) Pneumonia due to COVID-19 virus: Dexamethasone 6mg daily for 10 days. Converted to p.o. at discharge. Completed 3 days of remdesivir, additional doses deferred as patient greater than 10 days from onset of symptoms with minimal benefit, and with normal oxygen saturation at rest and with ambulation at time of discharge. Incentive spirometry, flutter valve, mucinex, ventolin prn, and self-proning use during admission Patient ambulated before discharge, maintained O2 sat greater than 94% Normal mentation at time of discharge (3) Leukopenia: 2nd COVID-19 infection. stable. (4) Morbid obesity: BMI 42 (5) GERD (gastroesophageal reflux disease): Continue PPI. (6) Tobacco abuse disorder: Bobbin Drier to quit. No h/o asthma or COPD. (7) Thrombocytopenia: Mild. 2nd to COVID-19 infection. stable level, improved (8) DVT prophylaxis: lovenox 40mg BID during admission, no signs of DVT during admission (9) Acute metabolic encephalopathy: 2nd to COVID-19 infection supportive care Improved and normalized day of discharge Total Time Total Time Spent Total Time Spent (In Minutes): Total time spent day of discharge including direct patient care, documentation, and review of labs and images approximately 35 minutes. Discharge Plan Discharge Items Patient Disposition: Home - Self-Care Reason For Visit: COVID-19 PNEUMONA Discharge Diagnosis: COVID-19 pneumonia Activity: Per Instructions section Non-emergency contact: Primary Care Provider Call non-emergency contact if: you have any medication questions, your symptoms worsen, your pain is concerning for you and you have a fever Follow-up/Referrals: Domo Cochran DO [Primary Care Provider] - Diet: Regular Addtl Attending Provider Instructions: You were seen in the hospital for COVID-19 pneumonia. You clinically improved, and were treated with 3 days of remdesivir and steroid treatment.You have been prescribed additional steroids at time of discharge as noted below. You clinically improved and did not require oxygen for over 24 hours including with ambulation prior to discharge. Some patients experience a worsening of their Covid illness after initial improvement, if you experience any worsening symptoms including worsening shortness of breath, difficulty breathing, or other new/concerning symptoms please call your primary care physician or contact 911 for reevaluation in the emergency department. You have been prescribed additional doses of a steroid medication called dexamethasone. Please continue to take dexamethasone 6 mg by mouth once daily for 8 additional days. You were noted to have low white blood cell levels and low platelet levels during admission. Both of these can be caused by Covid infection. Your platelet levels had improved to normal ranges, your white blood cell count remains slightly low. Please discuss a recheck blood count (CBC) with your PCP at your follow-up appointment. A followup appointment is being scheduled for you with your PCP. You should be seen seen within 1 to 2 weeks, your provider may prefer virtual visit. You should receive a call to confirm this appointment. If you do not receive a call within 48 hours to confirm this appointment, or need to change this appointment, please call the provider's office at [phone]. If you develop any new or worsening symptoms including fever, chills, sweats, chest pain, chest pressure, difficulty breathing, uncontrolled nausea/vomiting, rash, wheezing, passing out or nearly passing out, bleeding, black/bloody bowel movements, or other new or concerning symptoms please call your primary care physician at [phone], or call 911 for re-evaluation in the emergency department if you are very concerned. Pending Studies at Discharge: No Stand-Alone Forms: [facility], Sm[facility] Cess[facility] Medications and DC Order Prescriptions: New dexamethasone 6 mg tablet 6 mg PO DAILY Qty: 8 RF: 0 Continued gabapentin 600 mg tablet 600 mg PO BID Qty: 180 RF: 3 medical marijuana See Rx Instructions PO .COMPLEX PRN (Reason: Pain) RF: 0 bupropion HCl [Wellbutrin XL] 150 mg tablet extended release 24 hr 300 mg PO QAM RF: 0 trazodone 100 mg Tablet 150 mg PO HS RF: 0 celecoxib [Celebrex] 200 mg capsule 200 mg PO QAM RF: 0 omeprazole 20 mg tablet,delayed release (DR/EC) 20 mg PO QPM RF: 0 Discharge Orders: Discharge Order (Routine); Ordered 03/26/21 Ordered By: yTrese Lawson Admission Data Admit Date/Time: 03/24/21 10:31 Attending Provider: Tyrese Lawson Admit Provider: Tom Carson Primary Care Provider: Domo Cochran Other Providers: Tom Carson Other Interventions: Discharge Summary Assessment (RN) Last Done: 03/26/21 12:29 Coding Level of Care Code D/C DAY MANAGEMENT >30 MINS Diagnoses Acute respiratory failure with hypoxia J96.01 Pneumonia due to COVID-19 virus U07.1; J12.82 Leukopenia D72.819 Morbid obesity E66.01 GERD (gastroesophageal reflux disease) K21.9 Tobacco abuse disorder Z72.0 Thrombocytopenia D69.6 DVT prophylaxis Z29.9 Acute metabolic encephalopathy G93.41
[2021-03-27] MEDS ORDERED: dexAMETHasone 1 MG TAB PO SCH ×2 (09:00)
== END 2021-03-26 19:13 | disposition home or self-care (01) | DRG 177 ==
LOC: ED 06:55 → EDINP 10:31 → SUATTDRO 10:31 → EDINP 13:45 → 2W 03-25 22:53

== ENCOUNTER 2024-05-15 05:11 | Observation (INO) ==
--- NOTE | 2024-04-21 11:48 | PAT Medication Instructions ---
Medication Instructions Date of Service April 21, 2024 Home Medications Medication Instructions Recorded gabapentin 600 mg tablet 600 mg PO BID #180 tabs 08/16/23 celecoxib 200 mg capsule (Celebrex) 200 mg PO QAM #90 caps 10/08/23 cyclobenzaprine 10 mg tablet 10 mg PO TID PRN muscle spasm #30 01/04/24 tabs Wheeled Walker #1 ea 03/14/24 Wheeled Walker #1 ea 03/14/24 oxycodone 10 mg tablet 10 mg PO TID PRN pain #90 tabs 04/14/24 medical marijuana See Rx Instructions PO .COMPLEX PRN Pain trazodone 100 mg tablet 150 mg PO HS methylphenidate HCl 18 mg tablet,extended release 24 hr (Concerta) 36 mg PO QAM gabapentin 600 mg tablet 600 mg PO BID celecoxib 200 mg capsule (Celebrex) 200 mg PO QAM cyclobenzaprine 10 mg tablet 10 mg PO TID PRN muscle spasm oxycodone 10 mg tablet 10 mg PO TID PRN pain acetaminophen 500 mg tablet 500 mg PO QID PRN Pain ascorbic acid 500 mg-bioflavonoids 500 mg tablet 1 tab PO DAILY multivitamin 1 tab PO DAILY omeprazole 20 mg capsule,delayed release 20 mg PO QPM turmeric 400 mg capsule 800 mg PO QAM ASK your surgeon for instructions celecoxib 200 mg capsule (Celebrex) 200 mg PO QAM STOP taking 2 weeks before surgery (or as soon as possible if surgery is within 2 weeks) turmeric 400 mg capsule 800 mg PO QAM DO NOT take the morning of surgery medical marijuana See Rx Instructions PO .COMPLEX PRN Pain methylphenidate HCl 18 mg tablet,extended release 24 hr (Concerta) 36 mg PO QAM ascorbic acid 500 mg-bioflavonoids 500 mg tablet 1 tab PO DAILY multivitamin 1 tab PO DAILY Take morning of surgery With a small sip of water, OTHERWISE NOTHING TO EAT OR DRINK AFTER MIDNIGHT: gabapentin 600 mg tablet 600 mg PO BID cyclobenzaprine 10 mg tablet 10 mg PO TID PRN muscle spasm (if needed) oxycodone 10 mg tablet 10 mg PO TID PRN pain (if needed) acetaminophen 500 mg tablet 500 mg PO QID PRN Pain (if needed) Take evening before surgery medical marijuana See Rx Instructions PO .COMPLEX PRN Pain (if needed) trazodone 100 mg tablet 150 mg PO HS gabapentin 600 mg tablet 600 mg PO BID cyclobenzaprine 10 mg tablet 10 mg PO TID PRN muscle spasm (if needed) oxycodone 10 mg tablet 10 mg PO TID PRN pain (if needed) acetaminophen 500 mg tablet 500 mg PO QID PRN Pain (if needed) omeprazole 20 mg capsule,delayed release 20 mg PO QPM Other Notes If you have any questions please call us at [phone] or [phone] or [phone] or [phone]
--- NOTE | 2024-04-28 12:52 | Anesthesiology Consultation ---
Date of Service April 28, 2024 Assessment & Plan (1) Encounter for pre-operative examination: Plan - difficult intubation: ACDF C4-C5 at [facility]= 05/09/15= could only see epiglottis with MAC 4, Glidescope 4 attempt unable to lift soft tissue enough to visualize cords. MD murphy attempt x2 successful- all attempts atraumatic. - Patient states he is supposed to be scheduled as overnight stay, not outpatient joint. Surgeon's office made aware, OR corrected booking to overnight. Chart Review Chart Review: Acceptable Risk for Surgery and Patient seen in Pre Admission Testing Teaching & Discussion Pre-Anesthesia Teaching/Discussion Notes: Instructed NPO after midnight before surgery, except medications with 15 cc of water. Medication instructions provided according to the PAT guidelines. History Surgery Operation Date: 05/15/24 10:40 Proposed Procedures p Left Total Hip Arthroplasty - Julio Puente MD Height/Weight Height: 6 ft 2 in Weight: 152.1 kg Allergies Allergy/AdvReac Type Severity Reaction Status Date / Time codeine AdvReac Intermediate Severe Verified 04/15/24 08:03 abdominal cramps Medications Home Medications Medication Instructions Recorded Confirmed Last Taken medical marijuana See Rx Instructions PO .COMPLEX 10/20/20 04/15/24 01/21/23 PRN Pain trazodone 100 mg tablet 150 mg PO HS 11/18/20 04/15/24 01/23/23 methylphenidate HCl 18 mg 36 mg PO QAM 03/21/23 04/15/24 Unknown tablet,extended release 24 hr (Concerta) gabapentin 600 mg tablet 600 mg PO BID #180 tabs 08/16/23 04/15/24 Unknown celecoxib 200 mg capsule (Celebrex) 200 mg PO QAM #90 caps 10/08/23 04/15/24 Unknown cyclobenzaprine 10 mg tablet 10 mg PO TID PRN muscle spasm #30 01/04/24 04/15/24 Unknown tabs Wheeled Walker #1 ea 03/14/24 Unknown Wheeled Walker #1 ea 03/14/24 Unknown oxycodone 10 mg tablet 10 mg PO TID PRN pain #90 tabs 04/14/24 04/15/24 Unknown acetaminophen 500 mg tablet 500 mg PO QID PRN Pain 04/15/24 04/15/24 Unknown ascorbic acid 500 mg-bioflavonoids 1 tab PO DAILY 04/15/24 04/15/24 Unknown 500 mg tablet multivitamin 1 tab PO DAILY 04/15/24 04/15/24 Unknown omeprazole 20 mg capsule,delayed 20 mg PO QPM 04/15/24 04/15/24 Unknown release turmeric 400 mg capsule 800 mg PO QAM 04/15/24 04/15/24 Unknown Past Medical History Medical History ADD (attention deficit disorder) Cervical radiculopathy at C6 Depression Diverticular disease hx, diverticulitis-last flare several years ago GERD (gastroesophageal reflux disease) controlled, stable per pt History of anxiety History of COVID-19 (2020) 2020, pneumonia, respiratory failure>no current symptoms History of depression Hx of basal cell carcinoma s/p removal right arm Hx of difficult intubation (2015) per hx: ACDF C4-C5 at [facility]= 05/09/15= could only see epiglottis with MAC 4, Glidescope 4 attempt unable to lift soft tissue enough to visualize cords. MD murphy attempt x2 successful- all attempts atraumatic Hx of tuberculosis (1981) tested positive, no symptoms, treated x 1 year, no issues Medical cannabis use Osteoarthritis of left hip Pseudogout Snoring states sleep study was negative, but states he does not tolerate laying on his back Thrombocytopenia Trigger finger mostly left index finger Patient denies h/o stroke, seizures, heart attack, heart failure, DM, HTN, blood clots/DVTs or blood transfusions. Exercise / Class Metabolic Activity II 4-5 Yardwork/Stairs/Walk up hill (denies chest discomfort or shortness of breath with one flight of stairs) Past Family History Family History Grandfather (Maternal) Family history of diabetes mellitus Prostate cancer Myocardial infarction Family/Other No problems noted. Father Prostate cancer Other Colorectal cancer Denies family history of Ovarian cancer Deep vein thrombosis Breast cancer Pulmonary embolism Past Surgical History Surgical History H/O bilateral inguinal hernia repair (12/09/20) H/O foot surgery right hammertoe H/O hand surgery left trigger finger History of arthroscopy b/l knee x2 right x1 left History of basal cell carcinoma (BCC) excision History of carpal tunnel release right History of knee replacement (07/2018) Right TKA (08/09/18): SAB at L3-L4/L4-L5 (x4 attempts) > attempted SAB without success > elective glidescope, atraumatic, ETT 8.0 at [facility] History of laminectomy X2 L4-L5- 2014 L2-L3-2016 History of mandibular surgery (1995) right jaw- fatty growth removed History of rectal surgery (1991) rectal fistula History of repair of rotator cuff (2011) right Hx of colonoscopy with polypectomy Hx of fusion of cervical spine (2015) ACDF C4-C5; ROM WNL Hx of repair of left rotator cuff (09/2022) Hx of thumb surgery rt thumb tendon repair S/P wrist surgery left fusion Past Anesthesia History Difficult Airway and No Family Hx of Anesthesia Complications History of PONV No Hx of PONV and No Hx of Motion Sickness Social History Smoking Status: Current every day smoker tobacco type: cigars Smoking cigarettes per day: 1 cigar per day (Advised) Do You Dip or Chew Tobacco: No Hx Alcohol Use: Yes Alcohol type: beer and hard liquor alcohol intake frequency: a few times a week Hx Substance Use: Yes substance use type: marijuana Substance Use Type Other:: medical marijuana Last Used Substance: Unknown Last Used Substance Other:: medical marijuana (advised) Review of Systems Patient denies chest pain, shortness of breath, dyspnea on exertion, fever, chills, cough, wheezing, or palpitations. Physical Exam Vital Signs Vitals BP 155/83 P 66 TEMP 98.7 SP02 96% on RA RESP 19 Physical Patient resting comfortably in chair in no acute distress, alert and oriented, responding appropriately throughout visit Mild limitation of cervical extension range of motion without pain TMD 3.5 finger breadths Mallampati Score 2 Dentition: intact, denies chipped or loose teeth, caps/crowns, implants or bridges Lungs: normal respiratory effort. Good air movement, clear throughout to auscultation, no adventitious breath sounds Cardiac: regular rate and rhythm, no murmurs noted Carotid arteries: negative bruit bilat Lab Results Anesthesia Preop Results Results Anesthesia Widget: WBC 7.23 K/ul (4.8-10.8) 04/28/24 Hgb 14.1 g/dl (14.0-18.0) 04/28/24 Hct 40.8 % (42.0-52.0) L 04/28/24 Plt 279 K/uL (130-400) 04/28/24 Na 141 mmol/L (136-145) 04/28/24 K 3.9 mmol/L (3.5-5.1) 04/28/24 Cl 108 mmol/L (98-107) H 04/28/24 CO2 26 mmol/L (21-32) 04/28/24 BUN 16 mg/dl (6-23) 04/28/24 Creat 0.78 mg/dl (0.6-1.4) 04/28/24 Glucose Level 120 mg/dl (70-99(Fasting)) H 04/28/24 PT 12.6 Seconds (9.0-12.0) H 04/28/24 PTT 27 Seconds (21-31) 04/28/24 INR 1.2 (0.9-1.1) H 04/28/24 Blood Type A Positive 04/28/24 Antibody Screen NEGATIVE 04/28/24 Testing Electrocardiogram Date: 04/28/24 NSR, rate 67 bpm Incomplete RBBB Chest X-Ray Date: 04/28/24 No acute findings.
--- NOTE | 2024-05-10 09:51 | History & Physical Report ---
Date of Service May 10, 2024 Assessment & Plan (1) Osteoarthritis of left hip: 58-year-old gentleman with progressive hip pain consistent with progressing and advanced hip arthritis. He is failed conservative measures. He is got significant back issues as well which probably contributes some to this issue. Plan: We discussed treatment option with the patient. Certainly he is got hip arthritis and a lot of his pain seems to be coming from his hip but unsure some this was coming from his back. After extensive discussion he like to proceed now with left hip replacement. I do think this will help him significantly but does not resolve all of his problems prickly with those related to his back. He understands and informed consent was obtained. Will plan to keep in the hospital overnight and likely discharge postoperative day 1. Will use aspirin for DVT prophylaxis. (2) Degenerative disc disease, lumbar: (3) ADD (attention deficit disorder): (4) GERD (gastroesophageal reflux disease): (5) Morbid obesity: (6) Depression: History of Present Illness Chief Complaint: . Left hip and groin pain. Primary Care Provider: SHO Etienne . The patient is a 58-year-old gentleman well-known to me from a previous right knee replacement in July 2018. Over the past year to year and a half he has developed increased pain discomfort in his left hip groin and thigh area. She got significantly worse over the past 8 months. He is failed conservative measures. Is been through pain clinic had injection to provide only temporary relief. He was actually scheduled for surgery with Dr. Espinoza at [facility] but was planning on doing outpatient surgery on him. He was not too keen on that and wants to stay in the hospital overnight. He now presents for surgical treatment. He like to have his hip fixed. He wants to stay in the hospital overnight. Allergies Allergy/AdvReac Type Severity Reaction Status Date / Time codeine AdvReac Intermediate Severe Verified 04/15/24 08:03 abdominal cramps Home Medications Medication Instructions Recorded Confirmed Type medical marijuana See Rx Instructions PO .COMPLEX 10/20/20 04/15/24 History PRN Pain trazodone 100 mg tablet 150 mg PO HS 11/18/20 04/15/24 History methylphenidate HCl 18 mg 36 mg PO QAM 03/21/23 04/15/24 History tablet,extended release 24 hr (Concerta) gabapentin 600 mg tablet 600 mg PO BID #180 tabs 08/16/23 04/15/24 Rx celecoxib 200 mg capsule (Celebrex) 200 mg PO QAM #90 caps 10/08/23 04/15/24 Rx cyclobenzaprine 10 mg tablet 10 mg PO TID PRN muscle spasm #30 01/04/24 04/15/24 Rx tabs Wheeled Walker #1 ea 03/14/24 Rx Wheeled Walker #1 ea 03/14/24 Rx oxycodone 10 mg tablet 10 mg PO TID PRN pain #90 tabs 04/14/24 04/15/24 Rx acetaminophen 500 mg tablet 500 mg PO QID PRN Pain 04/15/24 04/15/24 History ascorbic acid 500 mg-bioflavonoids 1 tab PO DAILY 04/15/24 04/15/24 History 500 mg tablet multivitamin 1 tab PO DAILY 04/15/24 04/15/24 History omeprazole 20 mg capsule,delayed 20 mg PO QPM 04/15/24 04/15/24 History release turmeric 400 mg capsule 800 mg PO QAM 04/15/24 04/15/24 History amoxicillin 500 mg tablet 2,000 mg (4 x 500 mg) PO ONCE #4 05/09/24 Rx tabs Past Med/Surg History Problem List Degenerative disc disease, lumbar ADD (attention deficit disorder) followed by psych, on concerta GERD (gastroesophageal reflux disease) Vitamin D deficiency Morbid obesity History of difficult intubation ACDF C4-C5 at [facility]= 05/09/15= could only see epiglottis with MAC 4, Glidescope 4 attempt unable to lift soft tissue enough to visualize cords. MD murphy attempt x2 successful- all attempts atraumatic Chronic back pain Depression followed by [facility] Medical History Snoring states sleep study was negative, but states he does not tolerate laying on his back Hx of difficult intubation (2015) per hx: ACDF C4-C5 at [facility]= 05/09/15= could only see epiglottis with MAC 4, Glidescope 4 attempt unable to lift soft tissue enough to visualize cords. MD murphy attempt x2 successful- all attempts atraumatic Hx of tuberculosis (1981) tested positive, no symptoms, treated x 1 year, no issues Osteoarthritis of left hip GERD (gastroesophageal reflux disease) controlled, stable per pt Trigger finger mostly left index finger History of anxiety History of depression Hx of basal cell carcinoma s/p removal right arm Medical cannabis use History of COVID-19 (2020) 2020, pneumonia, respiratory failure>no current symptoms Depression ADD (attention deficit disorder) Pseudogout Cervical radiculopathy at C6 Thrombocytopenia Diverticular disease hx, diverticulitis-last flare several years ago Surgical History Hx of colonoscopy with polypectomy History of rectal surgery (1991) rectal fistula History of mandibular surgery (1995) right jaw- fatty growth removed History of basal cell carcinoma (BCC) excision Hx of fusion of cervical spine (2015) ACDF C4-C5; ROM WNL Hx of repair of left rotator cuff (09/2022) Hx of thumb surgery rt thumb tendon repair H/O bilateral inguinal hernia repair (12/09/20) History of knee replacement (07/2018) Right TKA (08/09/18): SAB at L3-L4/L4-L5 (x4 attempts) > attempted SAB without success > elective glidescope, atraumatic, ETT 8.0 at [facility] History of laminectomy X2 L4-L5- 2014 L2-L3-2016 History of repair of rotator cuff (2011) right History of carpal tunnel release right H/O hand surgery left trigger finger S/P wrist surgery left fusion H/O foot surgery right hammertoe History of arthroscopy b/l knee x2 right x1 left Family History Grandfather (Maternal) Family history of diabetes mellitus Prostate cancer Myocardial infarction Family/Other No problems noted. Father Prostate cancer Other Colorectal cancer Denies family history of Ovarian cancer Deep vein thrombosis Breast cancer Pulmonary embolism Social History Smoking Status: Current every day smoker Tobacco Type: Cigars Cigarettes Per Day: 1 cigar per day (Advised); Second Hand Exposure: No; Do You Dip or Chew Tobacco: No; Hx Alcohol Use: Yes Alcohol type: beer and hard liquor Alcohol Intake Frequency: 2-4 x/Month Hx Substance Use: Yes Last Used Substance: Unknown Last Used Substance Other:: medical marijuana (advised) Substance Use Type Other:: medical marijuana Preferred Language: Italian Communication Ability: Effective Automation Manager Required: No Beliefs That Will Affect Care: None marital status: Current Living Situation: Alone Current Living Situation Comment: lives with in [place] current occupational status: retired 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 Physical Exam . Physical examination was a fairly pleasant middle-aged gentleman looks to be in reasonably good health. Fairly large male. Examination of the left hip and leg reveal patient walks with slightly antalgic gait. Leg lengths appear clinically pretty equal. He does have stiffness and pain with hip motion particularly internal rotation. He can internally rotate to neutral at best and that is about it. Negative straight leg raise. No knee effusion. He is neurologically intact. Constitutional WD/WN, vitals as above Neck trachea midline, no thyromegaly Respiratory normal respiratory effort, lungs clear to auscultation Cardiovascular RRR, no murmur, no edema Gastrointestinal (Abdomen) normal bowel sounds, soft, nontender, no hepatosplenomegaly Results & Data Results & Data Laboratory Results . Diagnostic Findings . X-rays of the left hip were reviewed. It shows a moderate to advanced left hip arthritis. He is got 50 to 75% plus loss of his joint space. Fairly concentric disease. Not much in the way of osteophyte formation. PG Care Time/CCT Total # of Minutes Spent Total Time Spent with Patient: Total time spent is greater than 50% in coordination of care (as documented) at patient's floor/unit and/or counseling patient: Coding Level of Care Code None Diagnoses Osteoarthritis of left hip M16.12 Degenerative disc disease, lumbar M51.36 ADD (attention deficit disorder) F98.8 GERD (gastroesophageal reflux disease) K21.9 Morbid obesity E66.01 Depression F32.9
[2024-05-15] MEDS: LR 500ML BOLUS, THEN 15ML/HR IV SCH (05:56)
[2024-05-15] MEDS: LR 60ML/HR IV SCH (05:56)
[2024-05-15] MEDS: ACETAMINOPHEN 500 MG TAB PO SCH ×2 (05:56→15:03)
[2024-05-15] MEDS: CeleBREX 200 MG CAP PO SCH (05:56)
[2024-05-15] MEDS: FAMOTIDINE 20 MG TAB PO SCH (05:56)
[2024-05-15] MEDS: METOCLOPRAMIDE HCL 10 MG TABLET PO SCH (05:56)
[2024-05-15] MEDS ORDERED: ceFAZolin 2000MG 2,000 MG/15 ML SYR IV SCH (06:00)
[2024-05-15] MEDS ORDERED: BUPIVACAINE 0.5 % 5 MG/1 ML PF 10ML VIAL ONE (06:17)
[2024-05-15] MEDS ORDERED: LIDOCAINE 2% 2 ML VIAL/AMP(20MG/ML) INFIL ONE (06:27)
[2024-05-15] MEDS ORDERED: MIDAZOLAM HCL 1 MG/ML 2ML VIAL ONE (06:27)
[2024-05-15] MEDS ORDERED: PROPOFOL IV EMULSION 10 MG/ML 20 ML VIAL IV ONE ×2 (06:27→07:59)
[2024-05-15] MEDS ORDERED: fentaNYL citrate PF 100 MCG/2 ML VIAL ONE (06:28)
[2024-05-15] MEDS ORDERED: KETAMINE HCL 10MG/ML SYR ONE (06:33)
[2024-05-15] MEDS ORDERED: PHENYLEPHRINE HCL 10 MG/ML VIAL ONE (06:34)
--- NOTE | 2024-05-15 06:43 | History & Physical Bridge Note ---
Date of Service May 15, 2024 History & Physical Bridge Note I have examined the patient, reviewed the History & Physical and in the interval since the performance of the History & Physical I have noted the following changes of clinical significance: no changes noted
[2024-05-15] MEDS: TRANEXAMIC ACID 1,000 MG **IV Pre-op IV SCH (06:47)
[2024-05-15] MEDS: ceFAZolin 3000MG 3,000 MG/72.5 ML BAG IV SCH (07:04)
[2024-05-15] MEDS ORDERED: ePHEDrine sulfate 50 MG/5 ML SYR ONE (07:26)
[2024-05-15] MEDS ORDERED: GLYCOPYRROLATE 0.2 MG/ML VIAL ONE (07:28)
[2024-05-15] MEDS ORDERED: ePHEDrine sulfate 50 MG/ML AMP IV PRN (07:36)
[2024-05-15] MEDS ORDERED: PROMETHAZINE HCL 6.25 MG in SODIUM CHLORIDE 0.9% 50 ML IV PRN (07:36)
[2024-05-15] MEDS ORDERED: ATROPINE SULFATE 0.1 MG/ML 10ML SYR IV PRN (07:36)
[2024-05-15] MEDS: BUPIVACAINE/EPINEPHRINE 0.5% MPF 1:200,000 30 ML VIAL ONE (07:46)
--- NOTE | 2024-05-15 08:52 | Operative Report ---
PG Post Operative Report Pre & Post Diagnosis Operation Date: 05/15/24 07:00 Pre-Op Diagnosis: Left Hip Osteoarthritis Post-Op Diagnosis: Left Hip Osteoarthritis I identified the patient and participated in the time-out.: Yes Procedure Operation Date: 05/15/24 07:00 Actual Procedures p Left Total Hip Arthroplasty, Uncemented(Left) - Julio Puente MD Surgeon Julio Puente MD Phlebotomy Director KEILY Gupta Estimated Blood Loss 150 Findings Consistent with Post-Op Diagnosis Specimens Left femoral head sent for pathology. Anesthesia Type Spinal MAC Complications none Disposition Accompanied Patient To Recovery: No Indications Patient is a 58-year-old male whose had a several year history of left hip pain discomfort is gotten significant worse over the past the 6 months. He also has known history of back issues and back problems. He been through extensive conservative treatment. It appeared that his hip was limiting his activity significantly and he elected proceed with total hip arthroplasty. Description of Procedure Operative implants consists of: 1 Biomet G7 size 56 mm acetabular shell. 2. 6.5 cancellous acetabular screws 1 at 35 mm length and 1 of 30 mm length. 3. [place] hole configuration manager. 4. Highly cross-linked polyethylene liner with a 56 mm outer diameter, 36 mm inner diameter with a moya placed inferior and posterior. 5. DePuy Karaya size 13 KLA femoral stem. 6. +5/36 mm ceramic articular ball. The patient was taken to the op room, identified, placed on the operating table in the supine position. All conductors were appropriately padded. IV antibiotics fibra anesthesia team. A spinal anesthetic and been implemented holding area. Patient was then placed in the right lateral decubitus position. An axillary roll was placed. A stool Birkett position was used for positioning. The left hip and leg were then prepped and draped in usual sterile fashion. A posterolateral approach to the left hip was then performed to a curvilinear incision centered over the greater trochanter. Sharp dissection was Through subcutaneous tissue dental of the IT band gluteal fascia. The IT band gluteal fascia were incised longitudinally in line of skin incision. The underlying greater bursa was excised. The piriformis and external rotators along with the posterior hip joint capsule were then released in the posterior aspect the hip as a single layer. Great care was taken throughout the procedure Pechacek nerve at all times. Hip was then internally rotated and dislocated. Femoral neck osteotomy cut was made with a Final Cut about 17 mm above the lesser trochanter. Femoral head was removed and sent for pathology. The femur was retracted anteriorly. Attention the acetabulum. The acetabular labrum was excised. The pulmonary fat was excised. Sequential reaming the acetabular was then performed again with a size 47 and progressing up to a 55 reamer. I then reamed a little bit with a 56 reamer and placed a 56 mm G7 acetabular cup in about 40 degrees lateral opening and 20 degrees of anteversion. It was fixed with two 6.5 screws. A trial liner was placed. Attention drawn the femur. The proximal femur was entered with a BorderJump cutter followed by canal finder. Then broached beginning with size 8 and progressing up to 13. Get excellent fitted to 13. The soft tissue was a little bit lax. This leg seemed clinically longer than the other leg preoperatively and I was hoping not lengthen him at all. Therefore we elected to place a posterior lip on the acetabular component to maximize stability even though there is a little bit of laxity. Leg lengths appeared clinically equal. We elect to place these implants. All trial implants were removed. An apex hole configuration manager was placed. Highly cross-linked polyethylene liner with a moya placed inferior and posterior were then placed. A size 13 KLA femoral stem was impacted in position. A +5/36 mm ceramic articular ball was placed. Hip was located once again found to be stable. Attention drawn toward closing. Wounds irrigated coconuts pulsatile lavage solution. I did inject locally with 60 cc of half percent Marcaine with epinephrine. The posterior capsule and external rotators then repaired through drill holes in the posterior trochanter with #2 Tycron suture. The IT band gluteal fascia then closed with #1 PDS suture in a running fashion the subcutaneous tissues then closed with 2 layers the deep layer #1 Vicryl suture in the subcutaneous tissues with 2-0 Dexon suture in a buried interrupted fashion. Skin was closed skin brenda. The incision site was then cleaned and dried and a Prevena VAC dressing was applied. The patient was then transferred to the recovery room in stable condition. Patient tolerated procedure well and there were no complications. Clovis Gupta, my physician digital marketing assistant, was present for the entire procedure. His assistance was essential and required for appropriate patient positioning, prepping and draping, surgical exposure, performing the technical details of the operation, placement the implants, closure of the wound, and placement of the sterile bandage. I attest to the content of the Intraoperative Record and any orders documented therein. Any exceptions are noted below.
--- NOTE | 2024-05-15 09:28 | XRay Report ---
XR hip 1V LT w pelvis CLINICAL HISTORY: IN PACU - Post Surgical TECHNIQUE: 1 view of the left hip and single frontal view of the pelvis were obtained. Comparison: Comparison is made to hip radiographs 03/16/2023 FINDINGS: Patient is status post total hip arthroplasty with expected postsurgical changes including soft tissu e swelling and subcutaneous emphysema. IMPRESSION: Expected postoperative appearance status post placement of total hip arthroplasty. ACT 112: Negative or not required by law. Electronically signed by: Isaac Sin M.D. 05/15/2024 9:26 AM
--- NOTE | 2024-05-15 09:49 | Anesthesiology Progress Note ---
Date of Service May 15, 2024 Anesthesia Post Procedure Vital Signs Vital Signs: Temp Pulse Pulse Resp BP BP Pulse Ox 05/15/24 09:30 58 L 12 114/70 94 05/15/24 09:20 55 L 12 123/66 94 05/15/24 09:10 62 14 115/73 95 05/15/24 09:00 58 L 16 114/69 97 05/15/24 08:50 57 L 14 111/56 L 98 05/15/24 08:42 36.1 C L 65 18 116/67 97 05/15/24 05:30 37.1 C 69 20 116/49 L 95 O2 Del Method O2 Flow Rate 05/15/24 09:30 Room Air 05/15/24 09:20 Room Air 05/15/24 09:10 Room Air 05/15/24 09:00 Oxymask 2 05/15/24 08:50 Oxymask 2 05/15/24 08:42 Oxymask 6 05/15/24 05:30 Room Air Transfer of Care Handoff Completed per policy Notes Mental Status: alert / awake / arousable and participated in evaluation Nausea / Vomiting: adequately controlled Pain: adequately controlled Airway Patency, RR, SpO2: stable & adequate BP & HR: stable & adequate Hydration State: stable & adequate Anesthetic Complications: no major complications apparent and Pt Satisfied with anesthetic care
[2024-05-15] MEDS ORDERED: ONDANSETRON INJ 2 MG/ML 2 ML VIAL IV PRN (11:12)
[2024-05-15] MEDS ORDERED: CYCLOBENZAPRINE HCL 10 MG TAB PO PRN (11:12)
[2024-05-15] MEDS ORDERED: ALUMINUM/MAGNESIUM SUSP 30 ML UDC PO PRN (11:12)
[2024-05-15] MEDS ORDERED: NALOXONE HCL 0.4 MG/1 ML VIAL/CARP IV PRN (11:12)
[2024-05-15] MEDS ORDERED: ASCORBIC ACID PO SCH (11:12)
[2024-05-15] MEDS ORDERED: METOCLOPRAMIDE HCL INJ 5 MG/ML 2 ML VIAL IV PRN (11:12)
[2024-05-15] MEDS ORDERED: diphenhydrAMINE Capsule 25 MG CAP PO PRN (11:12)
[2024-05-15] MEDS ORDERED: bisacodyL 10 MG SUPP PR PRN (11:12)
[2024-05-15] MEDS ORDERED: BIOFLAVONOIDS PO SCH (11:12)
[2024-05-15] MEDS ORDERED: MAGNESIUM HYDROXIDE SUSP 30 ML UDC PO PRN (11:12)
[2024-05-15] MEDS ORDERED: NON-FORMULARY MEDICATION (Multivitamin Tablet) PO SCH (11:12)
[2024-05-15] MEDS ORDERED: NON-FORMULARY MEDICATION (Turmeric 400 mg Capsule) PO SCH (11:12)
[2024-05-15] MEDS: HYDROmorphone INJ 2 MG/ML SYR/VIAL IV PRN (11:49)
[2024-05-15] MEDS: KETOROLAC 30 MG/ML VIAL IV SCH (13:19)
[2024-05-15] MEDS: HYDROmorphone INJ 0.5 MG/0.5 ML SYR IV PRN (14:44)
[2024-05-15] MEDS: ceFAZolin 2000MG 2,000 MG/15 ML SYR IV SCH (14:51)
[2024-05-15] MEDS: SENNA 8.6 MG TAB PO SCH ×2 (14:52→21:08)
[2024-05-15] MEDS: MULTIVITAMIN TAB PO SCH (14:56)
[2024-05-15] MEDS: DOCUSATE SODIUM 100 MG CAP PO SCH (14:56)
[2024-05-15] MEDS: GABAPENTIN 600 MG TAB PO SCH (14:56)
[2024-05-15] MEDS: TAMSULOSIN HCL 0.4 MG CAP PO SCH (14:57)
[2024-05-15] MEDS: ASPIRIN 81 MG ECTAB PO SCH (14:57)
[2024-05-15] MEDS: TRANEXAMIC ACID / 0.7% NACL 1,000 MG/100 ML BAG IV SCH (14:58)
[2024-05-15] MEDS: ASCORBIC ACID 500 MG TAB PO SCH (17:48)
[2024-05-15] MEDS: oxyCODONE HCL IR 5 MG TAB (IMMEDIATE RELEASE) PO PRN (17:51)
[2024-05-15 20:50] VITALS: RESP 18
[2024-05-15] MEDS: traZODone HCL 50 MG TAB PO SCH (21:07)
[2024-05-15] MEDS: PANTOprazole 40 MG TAB PO SCH (21:08)
--- NOTE | 2024-05-16 07:17 | Orthopedic Progress Note ---
Date of Service May 16, 2024 Assessment & Plan (1) Status post left hip replacement: Plan: 58-year-old gentleman postop day 1 from left hip replacement doing okay. His hips located. He is neurologically intact. Having a moderate amount of pain but nothing out of the ordinary. Plan: 1. DVT prophylaxis including Thiede teds, SCDs, and aspirin for 6 weeks. 2. PT/OT. Weight-bear as tolerated. Left total hip protocol. 3 pain control doing okay with current pain regimen. 4. Disposition. Plan to discharge to home with some home health if he does okay in therapy today. (2) Degenerative disc disease, lumbar: (3) ADD (attention deficit disorder): (4) GERD (gastroesophageal reflux disease): (5) Morbid obesity: Admission and Anticipated Discharge Date Admission Date: May 15, 2024 Subjective 58-year-old gentleman postop day 1 from a left hip replacement. I did wake him this morning. Still pretty groggy. Had an okay night. No new complaints. Some moderate hip pain. Physical Exam Physical Exam: Physical pauly is a pleasant middle-age male. He is was pretty tired this morning. Examination of the left hip and leg reveals the dressing be clean dry and intact. He is got a Prevena VAC in place. Thigh is soft and supple. Leg lengths are equal. He is neurologically intact. Respiratory: normal respiratory effort, lungs clear to auscultation Cardiovascular: RRR, no murmur, no edema Gastrointestinal (Abdomen): normal bowel sounds, soft, nontender, no hepatosplenomegaly Results & Data Vital Signs (Past 12 Hours) Vital Signs Temp Pulse Resp BP Pulse Ox O2 Del Method 05/16/24 03:00 37.3 C 78 18 123/76 92 Room Air 05/15/24 23:00 37.7 C H 75 18 107/69 92 Room Air 05/15/24 20:49 37.4 C 66 18 152/83 H 94 Room Air Laboratory Results Labs are pending.
[2024-05-16] MEDS: dexAMETHasone 10 MG in SYRINGE 0 ML IV SCH (08:34)
[2024-05-16 08:48] LABS: Basophils # (auto) 0.02 K/uL (0.00-0.20); Basophils % (auto) 0.3 %; Eosinophils # (auto) 0.15 K/uL (0.00-0.50); Hematocrit (blood only) 35.3 % (42.0-52.0); Immature Granulocytes # (auto) 0.03 K/uL (0.01-0.20); Immature Granulocytes % (auto) 0.4 %; Lymphocytes # (auto) 0.65 K/uL (1.20-3.40); Lymphocytes % (auto) 8.7 %; Mean Corpuscular Hemoglobin 31.2 pg (25.0-34.0); Mean Corpuscular Volume 91.7 fL (80.0-100.0); Mean Platelet Volume 10.3 fL (9.4-12.4); Monocytes # (auto) 0.77 K/uL (0.11-0.59); Monocytes % (auto) 10.3 %; Neutrophils # (auto) 5.89 K/uL (1.40-6.50); Neutrophils % (auto) 78.3 %; Platelet Count 157 K/uL (130-400); RDW Coefficient of Variation 12.7 % (11.5-14.5); RDW Standard Deviation 42.5 fL (36.4-46.3); Red Blood Count 3.85 M/uL (4.70-6.10); White Blood Count 7.51 K/ul (4.8-10.8)
[2024-05-16 09:07] LABS: BUN Creatinine Ratio 21.7 (10-20); Calcium 8.6 mg/dl (8.6-10.3); Creatinine Clr Calc Pharmacy 146.6 ml/min; Potassium 3.9 mmol/L (3.5-5.1)
--- NOTE | 2024-05-17 07:30 | Orthopedic Progress Note ---
Date of Service May 17, 2024 Assessment & Plan (1) Status post left hip replacement: Plan: 58-year-old gentleman postop day 2 from a left hip replacement doing better. Pain seems to be under better control. Hips located. He is neurologically intact. Plan: 1. DVT prophylaxis including thigh-high teds, SCDs, aspirin twice a day. 2. PT/OT. Weight-bear as top. Left total hip protocol. 3. Pain control. Doing okay with current pain regimen at this time. 4. Disposition. Plan is to discharge to home with some home health after therapy today. Admission and Anticipated Discharge Date Admission Date: May 15, 2024 Subjective 58-year-old gentleman postop day 2 from hip replacement surgery. He is doing quite a bit better today. Pain seems to be much better controlled. No chest pain or shortness of breath. Not feeling dizzy or lightheaded. Physical Exam Physical Exam: Physical examination was a pleasant middle-age male. He is sitting up at his bedside. He looks reasonably comfortable. Examination of the hip reveals the Prevena VAC dressing in place. Leg lengths are equal. Thigh is soft and supple. He can dorsiflex and plantarflex his foot appropriately. He is neurologically intact. Results & Data Vital Signs (Past 12 Hours) Vital Signs Temp Pulse Resp BP Pulse Ox O2 Del Method 05/16/24 20:10 36.6 C 84 18 148/81 H 94 Room Air
[2024-05-17 09:21] VITALS: BP 127/59; PULSE 82; TEMP 99.1; O2SAT 95
--- NOTE | 2024-05-20 06:36 | Discharge Summary ---
Date of Service May 20, 2024 Admission HPI (Per Admitting) . The patient is a 58-year-old gentleman well-known to me from a previous right knee replacement in July 2018. Over the past year to year and a half he has developed increased pain discomfort in his left hip groin and thigh area. She got significantly worse over the past 8 months. He is failed conservative measures. Is been through pain clinic had injection to provide only temporary relief. He was actually scheduled for surgery with Dr. Espinoza at [facility] but was planning on doing outpatient surgery on him. He was not too keen on that and wants to stay in the hospital overnight. He now presents for surgical treatment. He like to have his hip fixed. He wants to stay in the hospital overnight. Admission Exam (Per Admitting) . Physical examination was a fairly pleasant middle-aged gentleman looks to be in reasonably good health. Fairly large male. Examination of the left hip and leg reveal patient walks with slightly antalgic gait. Leg lengths appear clinically pretty equal. He does have stiffness and pain with hip motion particularly internal rotation. He can internally rotate to neutral at best and that is about it. Negative straight leg raise. No knee effusion. He is neurologically intact. Principal Diagnosis Same as "Discharge Diagnosis" noted below under Discharge Instructions. Discharge Data Procedures Performed Operation Date: 05/15/24 07:00 Actual Procedures p Left Total Hip Arthroplasty, Uncemented(Left) - Julio Puente MD Hospital Course (1) Status post left hip replacement: This is a 58 year old patient admitted on 05/15/24 and underwent total hip arthroplasty. He tolerated the procedure well and there were no complications. Transferred to the PACU post op and later to the orthopedic floor for further care. He was given ancef for antibiotic prophylaxis. He was also given LUIS stockings, SCDs, and aspirin for DVT prophylaxis. Hemoglobin, hematocrit, and vital signs were monitored during his hospital stay and remained stable. Did not require any blood transfusions. There were no complications during his hospital stay. By post op day #2 the patient was tolerating a regular diet, pain was reasonably controlled with oral pain medicine, and he was participating in physical therapy. On post op day #2 the patient was discharged home and set up with home health care. He was given printed discharge instructions including prescriptions for extra strength tylenol, aspirin, zofran, senokot, oxycodone, and flomax. Continue hip precautions. Continue physical therapy, weight bearing as tolerated. Continue LUIS stockings. Follow up approximately 2 weeks post op or sooner if there are problems or concerns. Discharge Plan Discharge Items Patient Disposition: Home - Home Health Services Reason For Visit: Left Hip Arthritis Discharge Diagnosis: Left Hip Replacement Activity: Resume your previous activity Activity Comment: Follow/Obey hip precautions at all times Weightbearing: Full weightbearing Weightbearing Comment: Weightbear as tolerated obeying hip precautions at all times. Non-emergency contact: Surgeon Call non-emergency contact if: you have any medication questions Follow-up/Referrals: Mirian Walls CRNP [Primary Care Provider] - Diet: Regular Addtl Attending Provider Instructions: ACTIVITY RECOMMENDATIONS: Diet: * You may resume previous diet. Physical Therapy: * Aggressive physical therapy is not usually needed. You will learn to take care of yourself safely and walk. * Follow the "Hip Precautions Instructions." * In some cases, the certified social workers in health care at the hospital will arrange to have a therapist come to your house for the first couple of weeks to help you learn these skills. * You need to practice on your own or with the help of a family member as needed. * When you learn these skills, most of the therapy can be done on your own. Home Exercise: * You were shown a series of exercises in the hospital. Do these exercises three to four times each day including the exercises you were shown in physical th erapy. Walking: * Get up and walk several times each day. For the first four weeks, try not to stand or walk for more than one hour at a time. If you do stand or walk for more than one hour, you will not hurt anything, but your leg will likely swell. * As you feel comfortable, you may change from the walker or crutches to a cane and then to independent walking. MEDICATIONS: New Medicine: * You will likely be taking one or more of these medicines: 1. Oxycodone - Take, as directed, when you need it, every six hours to control your pain. 2. Aspirin - Thins your blood to lessen the chance of forming a blood clot. * The most common side effects of pain medicine and iron are nausea and constipation. If nausea or constipation is too much of a problem or if you have any questions about your new medicines or doses, call [facility] at . We will try to help you manage these issues. "VERY IMPORTANT TO READ AND REVIEW" Pain: * The immediate post-operative period after hip replacement surgery is often quite painful. * You are given a prescription for pain medicine. You should take it, as directed, when you need it, especially before physical therapy and before going to bed. Pain that interferes with sleep is very common and can last several months. * You will likely need pain medicine for the first two to four weeks. It will not stop all of the pain. The pain will lessen and as you feel better, you may change to milder pain medicine such as Tylenol. * The most common side effects of pain medicine are nausea and constipation, so don't take more than you need. SPECIAL CARE INSTRUCTIONS: TEDs/Elastic Stockings: * The white elastic stockings help limit swelling and prevent blood clots from forming in your legs. The more you wear them, the more they work. * Wear them for six weeks. Incision Site Care: * Remove dressing postoperative day 2 and then shower. Keep direct shower pressure off the incision site. * After showering, cover brenda with dry gauze and change daily or more frequently if the dressing is getting saturated with drainage. * May completely stop using bandage if wound is dry and no drainage * [place] are removed between 2 and 3 weeks post-op. If your follow-up appointment is made before 2 weeks, please have your appointment re- scheduled. It is too early to remove the brenda. Prevention of Infection: * Take antibiotics one hour before any dental cleaning, dental work, urological procedure, gastrointestinal procedure or any invasive surgery in order to prevent your new joint from getting infected. * You may get the antibiotics from the doctor performing the procedure or you may call our office at before and we will call in a prescription to the pharmacy of your choice. Things to Watch For: * Drainage from the incision site that occurs more than one week after your surgery. * Severely increased leg pain or swelling. * Increased redness at the incision site. * Fever above 102 degrees Fahrenheit. * Unusual chest pain or shortness of breath. * Unusual pain or burning with urination. Call [facility] at with any of the above problems or if you have any questions about your medicines or recovery. FOLLOW UP VISIT: Make an appointment to see your doctor for approximately two weeks after surgery for a progress check and staple removal by calling the office at . Pending Studies at Discharge: No Stand-Alone Forms: My [facility] [employer], Smoking Cessation Medications and DC Order Prescriptions: Continued gabapentin 600 mg tablet 600 mg PO BID Qty: 180 3RF cyclobenzaprine 10 mg tablet 10 mg PO TID PRN (Reason: muscle spasm) Qty: 30 1RF (DME) Wheeled Walker Misc See Rx Instructions .MEDSUPPLY Qty: 1 0RF Rx Instructions: As directed (DME) Wheeled Walker Misc See Rx Instructions .MEDSUPPLY Qty: 1 0RF Rx Instructions: As directed amoxicillin 500 mg tablet 2,000 mg PO ONCE Qty: 4 3RF Rx Instructions: 4 tabs 1 hour prior to procedure oxycodone 5 mg tablet 5 - 10 mg PO Q6 PRN (Reason: pain) Qty: 40 0RF Rx Instructions: Take as needed for pain ondansetron 4 mg tablet,disintegrating 4 mg PO Q8 PRN (Reason: nausea) Qty: 20 1RF Rx Instructions: Take as needed for nausea sennosides [Senokot] 8.6 mg tablet 8.6 mg PO BID 14 Days Qty: 28 0RF Rx Instructions: Take two times a day to prevent/treat constipation acetaminophen [Tylenol Extra Strength] 500 mg tablet 1,000 mg PO TID 30 Days Qty: 180 0RF Rx Instructions: Take 3 times per day to lessen pain. aspirin [Donell Low Dose Aspirin] 81 mg tablet,delayed release (DR/EC) 81 mg PO BID 45 Days Qty: 90 0RF Rx Instructions: Take to prevent blood clots. tamsulosin [Flomax] 0.4 mg capsule 0.4 mg PO DAILY Qty: 7 0RF Rx Instructions: Begin night BEFORE surgery to prevent urinary retention methylphenidate HCl [Concerta] 18 mg tablet extended release 24hr 36 mg PO QAM medical marijuana See Rx Instructions PO .COMPLEX PRN (Reason: Pain) Rx Instructions: Takes 40-60mg PO at bedtime; PRN; trazodone 100 mg Tablet 150 mg PO HS Rx Instructions: not currently taking multivitamin Tablet 1 tab PO DAILY ascorbic acid-bioflavonoids 500-500 mg Tablet 1 tab PO DAILY turmeric 400 mg Capsule 800 mg PO QAM omeprazole 20 mg capsule,delayed release(DR/EC) 20 mg PO QPM Discontinued celecoxib [Celebrex] 200 mg capsule 200 mg PO QAM Qty: 90 3RF oxycodone 10 mg tablet 10 mg PO TID PRN (Reason: pain) Qty: 90 0RF Rx Instructions: hip surgery sched 05/15/24 acetaminophen 500 mg Tablet 500 mg PO QID PRN (Reason: Pain) Admission Data Admit Date/Time: 05/15/24 08:46 Attending Provider: Julio Puente Admit Provider: Julio Puente Primary Care Provider: Mirian Walls Other Providers: [facility],Home Health Other Interventions: Discharge Summary Assessment (RN) Last Done: 05/17/24 10:09
== END 2024-05-17 14:15 | disposition home health service (06) ==
LOC: ASU 05:11 → PACUINP 05:11 → 3W 12:46
DX: M51.360 Other intervertebral disc degeneration, lumbar region with discogenic back pain only; E66.01 Morbid (severe) obesity due to excess calories; K21.9 Gastro-esophageal reflux disease without esophagitis; M16.12 Unilateral primary osteoarthritis, left hip; Z88.5 Allergy status to narcotic agent; F17.290 Nicotine dependence, other tobacco product, uncomplicated; Z79.899 Other long term (current) drug therapy